=== PATIENT | female | born 1960 | race Caucasian/White ===

== ENCOUNTER → 2016-10-17 | Outpatient (CLI) | payer BC ==
--- NOTE | 2016-10-17 16:13 | KCIC ---
PROCEDURE MRI lumbar spine without contrast HISTORY Left leg and knee and thigh pain, numbness and burning sensation, left leg pain for about 1 month, no known injury TECHNIQUE Multiplanar, multi sequential non contrast MR imaging was performed of the lumbar spine. COMPARISON None FINDINGS Lumbar vertebral body stature and AP alignment are adequate. There are small superior L3 and L2 Schmorl's nodes. There is no significant marrow edema. Conus terminates normally at T12-L1. There is very mild smooth lumbar levoscoliosis. Intervertebral disc spaces are overall adequate, very mild disc desiccation greatest at L1-L2, L3-4, L4-5. There is likely very small Tarlov cyst at S2 up to 0.7 cm longitudinal. L1-2: There is posterior annular tear. Spinal canal and the neural foramina are adequate. L2-3: Spinal canal and the neural foramina are adequate. L3-4: There is negligible disc osteophyte complex and bulge eccentric to the far right lateral recess. Spinal canal and neural foramina are adequate. L4-5: There is mild buckling of the ligamentum flavum. Neural foramina and spinal canal are adequate. L5-S1: Spinal canal and neural foramina are adequate. There is mild facet degenerative change. IMPRESSION 1. There is no significant lumbar spinal stenosis or neural foramina compromise. Electronically signed by: Pasquale Lockhart MD (Oct 17, 2016 16:11:39)
== END | disposition home or self-care (01) ==
LOC: KCIC MRI 15:11
PROVIDERS: ATTEND Family Medicine
DX: M79.605 Pain in left leg (principal); M25.562 Pain in left knee; M79.652 Pain in left thigh
CPT/HCPCS: 72148

== ENCOUNTER → 2017-01-18 | Outpatient (CLI) | payer BC ==
--- NOTE | 2017-01-18 13:30 | KCIC ---
MR of the left knee Indication: Left knee pain anterior and posterior for 3 months. No known injury. Technique: The standard multiplanar sequences are obtained. Findings: Medial meniscus: Degenerative tear. Lateral meniscus: Blunting of the free margin of the body segment, only unequivocally seen on the single slice, compatible with a possible small tear. Anterior cruciate ligament: Intact Posterior cruciate ligament: Intact Medial collateral ligament: Intact. Iliotibial band: Intact. Posterolateral structures: Fibular collateral ligament, biceps tendon and popliteus tendon are intact. Extensor mechanism: Intact. Fluid: Moderate joint effusion. Articular cartilage -patellofemoral joint: Severe chondromalacia at the patella. -medial compartment: Severe chondromalacia with subchondral edema. -lateral compartment: Full-thickness defect of the medial aspect of the lateral tibial plateau articular cartilage measuring 7 mm wide by about 5 mm AP. Bones: No aggressive bone destruction or acute fracture. Soft tissue: Mild generalized soft tissue edema. Small Singh's cyst with some disorganized fluid extending into the upper medial calf raise a question of rupture. Impression: 1. Medial meniscal tear. 2. Possible small lateral meniscal tear. 3. Severe primary osteoarthritis. 4. Small Singh's cyst with possible rupture. Electronically signed by: Beau Mckee MD (01/18/2017 1:27 PM) [facility]
== END | disposition home or self-care (01) ==
LOC: KCIC MRI 11:57
PROVIDERS: ATTEND Family Medicine
DX: M17.12 Unilateral primary osteoarthritis, left knee (principal)
CPT/HCPCS: 73721

== ENCOUNTER 2019-05-08 07:40 | Day surgery (SDC) | payer BC ==
[~2019-05-08] VITALS: Ht 156.2 cm; Wt 86.5 kg
[2019-05-08] MEDS: IV RINGERS,LACTATED 1000ML 1,000 ML IV SCH ×2 (07:00→10:57)
[~2019-05-08 07:40] MED LIST: ASPI-630 PO; BUPIVACAINE-EPI 0.25%-1:200000 MPF 30 ML VIAL. INJ ONE; FAMO-63 PO; IOHEXOL 300 MG/ML 50 ML VIAL. ONE; ONDANSETRON PF 4 MG/2 ML VIAL. IV PRN; PANT40TA6 PO; SUCR1TAB PO; SURGICEL HEMOSTAT 4X8 EACH. ONE; fentaNYL PF VIAL 100 MCG/2 ML VIAL IV PRN
[2019-05-08] MEDS ORDERED: ceFAZolin 2GM PREMIX 2 GM/50 ML BAG IV ONE (08:00)
[2019-05-08] MEDS ORDERED: ROCURONIUM 50 MG/5 ML VIAL. ONE (08:03)
[2019-05-08] MEDS ORDERED: fentaNYL PF VIAL 100 MCG/2 ML VIAL ONE (08:03)
[2019-05-08] MEDS ORDERED: LIDOCAINE 2% PF 5 ML VIAL. ONE (08:03)
[2019-05-08] MEDS ORDERED: SUCCINYLCHOLINE 200 MG/10 ML VIAL. ONE (08:03)
[2019-05-08] MEDS ORDERED: PROPOFOL 20 ML IV ONE (08:03)
[2019-05-08] MEDS ORDERED: ACETAMINOPHEN 500 MG TABLET PO ONE ×2 (08:14→08:30)
[2019-05-08] MEDS ORDERED: INDOCYANINE GREEN 25 MG VIAL. IVP ONE (09:00)
[2019-05-08] MEDS ORDERED: DEXAMETHASONE SOD PHOS 4 MG/ML VIAL ONE (09:57)
[2019-05-08] MEDS ORDERED: DESFLURANE 31 TO 60 MINUTES IH ONE (09:57)
[2019-05-08] MEDS ORDERED: NEOSTIGMINE METHYLSULFATE 5 MG/5 ML SYRINGE. ONE (10:01)
[2019-05-08] MEDS ORDERED: ONDANSETRON PF 4 MG/2 ML VIAL. ONE (10:01)
[2019-05-08] MEDS ORDERED: GLYCOPYRROLATE 1 MG/5 ML VIAL. ONE (10:01)
--- NOTE | 2019-05-08 10:33 | PDOC4 ---
Operative Note Operative Note Date: 05/08/2019 Preoperative diagnosis: Chronic cholecystitis cholelithiasis Postoperative diagnosis: Same Procedure: Laparoscopic cholecystectomy Surgeon: Shaan Specimen: Gallbladder Dictation: Patient is a 58-year-old female is had right upper quadrant abdominal pain nausea vomiting and diarrhea ultrasound showing distended gallbladder with sludge and small stones. The procedure of lap scopic cholecystectomy was explained to the patient detail risk benefits were also discussed including bleeding infection injury to intra-abdominal contents possibly necessitating further open operations alternatives to this procedure also discussed with the patient is seemed to understand gave both verbal and written consent had the procedure performed. Patient was taken to the operating room placed in supine position general anesthesia was initiated once patient was sleep and intubated her abdomen was prepped and draped usual sterile fashion using ChloraPrep. An area just below the umbilicus was injected with quarter percent Marcaine with epinephrine incision was made with 11 blade scalpel and a varies needle was placed within the abdomen creating pneumoperitoneum once this was complete a 10 mm port was placed and a 5 mm camera was placed within the abdomen which was inspected no other abdomen maladies were noted. A 5 mm port was then placed in the epigastrium one in the right lateral abdomen on the right mid abdomen the dome of the gallbladder is grasped retracted cephalad there is quite a bit of adhesions to the omentum from the gallbladder these were taken down bluntly exposing the the triangle the infundibulum of the gallbladder is grasped retracted laterally the adherent tissue the triangle were taken down exposing the cystic duct this was checked under ICg-9 which showed patent cystic duct was doubly clipped and transected the cystic artery was also clipped and transected the gallbladder was taken off the liver using hook electrocautery was noted that the liver bed was somewhat friable and fair amount of oozing of blood. Surgicel was used to pack the triangle area gallbladder was placed in Endo Catch bag and removed the umbilicus right upper quadrant was irrigated and suctioned dry Arixtra powder was then used within the liver bed. Hemostasis was deemed to be appropriate at that point and the pneumoperitoneum was reduced all ports removed the fascial defect at the umbilicus closed [id number] 0 Vicryl suture and skin was approximate all port sites for septic tumor Monocryl Mastisol Steri- Strips and island dressings were applied. Patient was awakened and bated operating room taken to recovery in stable condition all sponge instrument needle counts listed as correct estimate blood loss 30 mL. CHRISTIAN SMITH MD May 08, 2019 10:33
--- NOTE | 2019-05-08 10:35 | DISCH ---
DISCHARGE INSTRUCTIONS Condition on Discharge Condition on Discharge: Stable Activity After Discharge Activity Instructions for Disc: Avoid exertion Other activity instructions: no lifting more than 20 pounds for 2 weeks Diet after Discharge Diet after Discharge: Low Fat Wound Incision Care Other wound/incision instructi: a shower in 24 hours, remove Steri-Strips and 1 week Contacting the DRAryan after DC Call your doctor for: If your condition worsens Follow-Up Follow up with: Dr. Smith in 2 weeks CHRISTIAN SMITH MD May 08, 2019 10:35
[2019-05-08] MEDS: fentaNYL PF VIAL 100 MCG/2 ML VIAL IV PRN ×2 (10:57→11:17)
[2019-05-08] MEDS: PROCHLORPERAZINE 10 MG/2 ML VIAL. IV PRN ×2 (10:58→11:17)
[2019-05-08] MEDS ORDERED: OXYC1TAB15 PO (11:00)
[2019-05-08] MEDS ORDERED: oxyCODONE/APAP 5/325 1 TAB TABLET PO ONE ×2 (11:15)
[2019-05-08] MEDS ORDERED: DEXAMETHASONE SOD PHOS 4 MG/ML VIAL IVP ONE (11:30)
[2019-05-08] MEDS ORDERED: FAMOTIDINE 20 MG/2 ML VIAL IVP ONE (11:30)
[2019-05-08 12:10] VITALS: BP 153/83
--- NOTE | 2019-05-12 16:06 | PATHOLOGY ---
[facility] Accession Number: [id number] . 01 Material submitted: . gallbladder - GALLBLADDER . 01 Clinical history: . Chronic cholecystitis . 02 Diagnosis: Gallbladder, laparoscopic cholecystectomy: - Cholesterolosis, focal. - Chronic cholecystitis. (JPM:dennis; 05/12/2019) S 05/12/2019 0910 Local . 02 Comment: There are no calculi identified within the gallbladder lumen or specimen container. There is no evidence of malignancy. (JPM:dennis; 05/12/2019) . 02 Electronically signed: . Jaren Rushing MD, Pathologist NPI- [id number] . 01 Gross description: . Received in formalin labeled "Tarsha Austin, gallbladder," is an intact, turgid gallbladder measuring 6.5 x 3.7 x 3.4 cm in greatest dimensions. The serosal surface is smooth to partially shaggy and dusky blue-green in appearance, displaying scant attached yellow adipose tissue. Opening the specimen reveals a velvety, dark green mucosa measuring 0.1 cm in thickness, with a gallbladder wall thickness of 0.1 cm not including attached adipose tissue. Scant bright yellow highlights are noted on the mucosal surface. No polyps or nodules are noted grossly. Calculi are not present within the specimen or specimen container. Licensed Loan Officer sections of the infundibulum, body and fundus are submitted in cassette A1. (DAC; 05/11/2019) XDC/XDC 05/12/2019 0908 Local . 02 Pathologist provided ICD-10: K82.4, K81.1 . 02 CPT . 030153 Specimen Comment: A courtesy copy of this report has been sent to [phone], [phone] Specimen Comment: [phone] Specimen Comment: Report sent to / DR CARO Performed at: [address] [facility] [address], [place], [place] [id number] MD Dylan Malloy MD Phone: [phone] Performed at: 02 [facility] [address], [place] [id number] MD Jaren Rushing MD Phone: [phone]
== END 2019-05-08 12:54 | disposition home health service (06) ==
LOC: SURG 07:40
PROVIDERS: ATTEND Surgery
DX: K80.10 Calculus of gallbladder with chronic cholecystitis without obstruction (principal); K21.9 Gastro-esophageal reflux disease without esophagitis; E78.00 Pure hypercholesterolemia, unspecified; Z79.82 Long term (current) use of aspirin; Z85.3 Personal history of malignant neoplasm of breast; Z90.710 Acquired absence of both cervix and uterus; Z98.890 Other specified postprocedural states; Z87.891 Personal history of nicotine dependence; Z72.89 Other problems related to lifestyle; Z88.6 Allergy status to analgesic agent; Z88.8 Allergy status to other drugs, medicaments and biological substances; Z87.39 Personal history of other diseases of the musculoskeletal system and connective tissue
CPT/HCPCS: 47562; A7015; J0330; J0696; J0780; J1100; J2001; J2405; J2704; J2710; J3010; J3490; J7030; 88304; Q9967

== ENCOUNTER → 2019-07-20 | Outpatient (CLI) | payer BC ==
[~2019-07-20] MED LIST changes: -BUPIVACAINE-EPI 0.25%-1:200000 MPF 30 ML VIAL. INJ ONE; +HYDR-2761 PO; +HYDR-2765 PO; -IOHEXOL 300 MG/ML 50 ML VIAL. ONE; +NAPR-683 PO; +NITR100C62 PO; -ONDANSETRON PF 4 MG/2 ML VIAL. IV PRN; +OXYC1TAB15 PO; -SURGICEL HEMOSTAT 4X8 EACH. ONE; +ZOLP10TA PO; -fentaNYL PF VIAL 100 MCG/2 ML VIAL IV PRN
[2019-07-20 09:29] LABS: BASO # 0.1 x10^3/uL (0.0-0.2); BASO % 1 % (0-3); EOS # 0.1 x10^3/uL (0.0-0.7); EOS % 0 % (0-3); HEMATOCRIT 45.9 % (36.0-47.0); HEMOGLOBIN 15.3 g/dL (12.0-15.5); LYMPH # 1.9 x10^3/uL (1.0-4.8); LYMPH % 13 % (24-48); MEAN CORPUSCULAR HEMOGLOBIN 32 pg (25-35); MEAN CORPUSCULAR HGB CONC 33 g/dL (31-37); MEAN CORPUSCULAR VOLUME 96 fL (79-100); MONO # 0.8 x10^3/uL (0.0-1.1); MONO % 6 % (0-9); NEUT % 81 % (31-73); PLATELET COUNT 282 x10^3/uL (140-400); RED BLOOD COUNT 4.77 x10^6/uL (3.50-5.40); RED CELL DISTRIBUTION WIDTH 12.9 % (11.5-14.5); WHITE BLOOD COUNT 14.9 x10^3/uL (4.0-11.0)
[2019-07-20 09:34] LABS: PROTHROMBIN TIME PATIENT 12.2 SEC (11.7-14.0)
[2019-07-20 09:57] LABS: CALCIUM 9.4 mg/dL (8.5-10.1); CREATININE 0.8 mg/dL (0.6-1.0); GFR 72.9; POTASSIUM 3.7 mmol/L (3.5-5.1)
--- NOTE | 2019-07-20 13:44 | EKG ---
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
--- NOTE | 2019-07-20 14:31 | RAD ---
EXAM: Chest, 2 views. HISTORY: Knee replacement. Preoperative evaluation. COMPARISON: None. FINDINGS: 2 views of the chest are obtained. There is no infiltrate, pleural effusion or pneumothorax. The heart is normal in size. IMPRESSION: No acute pulmonary finding. Electronically signed by: Tanna Winchester MD (07/20/2019 2:28 PM) [facility]
[2019-07-20 23:07] LABS: HEMOGLOBIN A1C 5.3 % (4.8-5.6)
== END | disposition home or self-care (01) ==
LOC: SURGPAT 13:34
PROVIDERS: ATTEND Orthopaedic Surgery
DX: Z01.818 Encounter for other preprocedural examination (principal); M17.12 Unilateral primary osteoarthritis, left knee; Z79.899 Other long term (current) drug therapy
CPT/HCPCS: 36415; 71046; 80048; 82040; 82306; 83036; 85025; 85610; 85651; 85730; 87641; 93005

== ENCOUNTER 2019-08-11 05:43 | Inpatient (IN) | payer BC ==
[~2019-08-11] VITALS: Ht 171.4 cm; Wt 80.7 kg
[2019-08-11] VITALS (8 sets, daily range): BP systolic 83–123; BP diastolic 51–86
[~2019-08-11 05:43] MED LIST changes: +CIPR500T94 PO
[2019-08-11] MEDS ORDERED: TRANEXAMIC ACID 1,000 MG in IV NS 50ML -- 1ST BAG INJ ONE (06:00)
[2019-08-11] MEDS ORDERED: ACETAMINOPHEN 500 MG TABLET PO PRN (06:00)
[2019-08-11] MEDS ORDERED: CELECOXIB 100 MG CAPSULE. PO PRN (06:00)
--- NOTE | 2019-08-11 06:14 | PDOC1 ---
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 She had knee arthroscopy in 2017 by me. She had cortisone injections, and took Naproxen, without satisfactory relief. Still having aching pain, and limitations of activity. Past Medical History Past Medical History K81.1 Chronic cholecystitis GI: GERD Psych: Depression Past Surgical History Past Surgical History L knee scope 2016 lap ashli 2019 appendectomy hysterectomy lumpectomy, left breast nasal surgery tonsillectomy Past Surgical History: Appendectomy, Cholecystectomy, Tonsillectomy, Hysterectomy Family History Family History Sister: breast cancer Maternal aunt: breast cancer Paternal aunt: breast cancer Mother: diagnosed with Heart Disease Father: Heart Disease Maternal Uncle: Diabetes Social History Smoke: Quit ALCOHOL: occassional Current Medications Current Medications Current Medications Ondansetron HCl (Zofran) 4 mg PRN Q6HRS PRN IV NAUSEA/VOMITING; Start 08/11/19 at 07:00; Stop 08/12/19 at 06:59 Fentanyl Citrate (Fentanyl 2ml Vial) 25 mcg PRN Q5MIN PRN IV MILD PAIN 1-3; Start 08/11/19 at 07:00; Stop 08/12/19 at 06:59 Fentanyl Citrate (Fentanyl 2ml Vial) 50 mcg PRN Q5MIN PRN IV MODERATE TO SEVERE PAIN; Start 08/11/19 at 07:00; Stop 08/12/19 at 06:59 Morphine Sulfate (Morphine Sulfate) 1 mg PRN Q10MIN PRN IV SEVERE PAIN 7-10; Start 08/11/19 at 07:00; Stop 08/12/19 at 06:59 Ringer's Solution 1,000 ml @ 30 mls/hr Q24H IV ; Start 08/11/19 at 07:00; Stop 08/11/19 at 18:59 Lidocaine HCl (Xylocaine-Mpf 1% 2ml Vial) 2 ml PRN 1X PRN ID PRIOR TO IV START; Start 08/11/19 at 07:00; Stop 08/12/19 at 06:59 Hydromorphone HCl (Dilaudid) 0.5 mg PRN Q10MIN PRN IV SEV PAIN, Second choice; Start 08/11/19 at 07:00; Stop 08/12/19 at 06:59 Prochlorperazine Edisylate (Compazine) 5 mg PACU PRN PRN IV NAUSEA, MRX1; Start 08/11/19 at 07:00; Stop 08/12/19 at 06:59 Morphine Sulfate 5 mg/Ketorolac Tromethamine 30 mg/Ropivacaine 60 ml/Epinephrine HCl 0.5 mg/Sodium Chloride 100 ml @ 100 mls/hr 1X ONCE INT ART ; Start 08/11/19 at 06:00; Stop 08/11/19 at 06:59 Acetaminophen (Tylenol) 1,000 mg 1X PREOP PRN PO PRIOR TO PROCEDURE; Start 08/11/19 at 06:00; Stop 08/11/19 at 18:00 Tranexamic Acid 1000 mg/Sodium Chloride 60 ml @ 60 mls/hr 1X PERIOP ONCE INJ ; Start 08/11/19 at 06:00; Stop 08/11/19 at 06:59 Tranexamic Acid 1000 mg/Sodium Chloride 60 ml @ 60 mls/hr 1X PERIOP ONCE INJ ; Start 08/11/19 at 08:00; Stop 08/11/19 at 08:59 Celecoxib (CeleBREX) 200 mg OC PROC PRN PO PRE-OP; Start 08/11/19 at 06:00; Stop 08/11/19 at 18:00 Cefazolin Sodium/ Dextrose 50 ml @ 100 mls/hr 1X PREOP PRN IV PRIOR TO PROCEDURE; Start 08/11/19 at 06:00; Stop 08/11/19 at 18:00 Active Scripts Active Reported Cipro (Ciprofloxacin Hcl) 500 Mg Tablet 500 Mg PO BID 5 Days Ambien (Zolpidem Tartrate) 10 Mg Tablet 10 Mg PO PRN QHS PRN Pepcid (Famotidine) 20 Mg Tablet 20 Mg PO BID Hydrocodone-Apap 7.5-325 (Hydrocodone Bit/Acetaminophen) 1 Tab Tablet 1 Tab PO PRN Q6HRS PRN Naprosyn (Naproxen) 500 Mg Tablet 500 Mg PO BID Pantoprazole Sodium 40 Mg Tablet.dr 40 Mg PO DAILY Allergies Allergies: Coded Allergies: pineapple (Verified Allergy, Intermediate, FRESH PINEAPPLE - RASH/HIVES, 05/08/19) Sulfa (Sulfonamide Antibiotics) (Verified Adverse Reaction, Intermediate, Rash, 07/23/19) tramadol (Verified Adverse Reaction, Intermediate, really weird feeling ( weak,wobbly), 05/08/19) ROS Review of System CONSTITUTIONAL: Fever denies, denies. Chills denies, denies. Weight gain denies, denies. Weakness none, none. weight loss denies, denies. Fatigue YES. OPHTHALMOLOGY: Blurred vision none, none. Double vision denies, denies. Change in vision none, none. ENT: Hearing loss none, none. Change in voice denies, denies. Rhinorrhea none, none. CARDIOLOGY: Palpitations none, none. Shortness of breath denies, denies. Chest pain denies, denies. GASTROENTEROLOGY: Diarrhea denies, denies. Vomiting none, none. Dysphagia none, none. UROLOGY: Voiding normally yes, yes. Hematuria none, none. MUSCULOSKELETAL: Chronic back or neck pain denies, denies. Swelling of the feet, hands, ankles and /or legs denies, denies. Joint pain Left Knee. Tingling/numbness no. DERMATOLOGY: Rash denies, denies. Lumps none, none. NEUROLOGY: Dizziness/lightheadedness denies, denies. Double vision, temporary blindness denies, denies. Tingling/numbness none, none. PSYCHOLOGY: Change in mood or personality denies, denies. Memory loss none, none. ENDOCRINOLOGY: Obesity denies, denies. Fatigue none, none. Weight loss none, none. HEMATOLOGY/LYMPH: Hepatitis denies, denies. Enlarged lymph nodes denies, denies. Physical Exam General: Alert, Cooperative HEENT: Atraumatic Lungs: Normal air movement Heart: RRR Extremities: No clubbing, No edema, Other ( The LEFT knee shows a mildly antalgic gait. There is mild varus alignment. No masses except for palpable m edial osteophytes. No detectable effusion. Tenderness on the joint lines. Range of motion is 5-115 degrees. There is crepitus with range of motion, and pain at the extremes of motion. The knee is stable to varus and valgus stress without subluxation or laxity. Muscle strength is slightly weak for the quadriceps 4+/5 which may be due to pain or avoidance, and does not seem neurogenic, and the muscle tone and bulk is slightly decreased. The hamstring strength is 5/5. Well- healed arthroscopy portals. The skin is otherwise normal with no lesions or ulcers. Light touch sensation is intact. No edema and no varicosities. Dorsalis pedis pulse is intact and capillary refill is normal) Neuro: Normal speech, Sensation intact Images Images I reviewed her MRI from 01/18/17. She had full-thickness lateral defects and severe patellar chondromalacia. A partial knee arthroplasty would not be appropriate in this setting due to the relatively large lateral cartilage full thickness defect. [facility] [address] [place] [address] IMAGING REPORT Signed PATIENT: NIA POTTER SACCOUNT: [id number] : 1960 LOCATION: [facility] AGE: 58 SEX: F EXAM STATUS: REG CLI ORD. PHYSICIAN: VIDYA DICKERSON MD REASON: PROCEDURE: KNEE RIGHT 3V EXAM: Bilateral knees, standing view; right knee, 2 views. HISTORY: Pain. COMPARISON: 10/09/2018 FINDINGS: A standing view both knees and lateral and sunrise views of the right knee are obtained. There is left greater than right medial compartment joint space narrowing with subchondral sclerosis and spurring. There is also bilateral lateral compartment spurring. There is left genu varus. There is a trace right joint effusion. IMPRESSION: 1. Moderate to severe left and mild to moderate right medial compartment and mild bilateral lateral compartment osteoarthritis of both knees. 2. Mild left genu varus. 3. Trace right knee effusion. Electronically signed by: Tanna Briggs MD (07/06/2019 4:39 PM) [facility] DICTATED and SIGNED BY: TANAN BRIGGS MD DATE: 07/06/19 1639 VTE Prophylaxis Ordered VTE Prophylaxis Devices: Yes VTE Pharmacological Prophylaxi: Yes Assessment/Plan Assessment/Plan Primary osteoarthritis left knee M17.12 We discussed options for treatment. I reviewed her MRI and partial knee arthroplasty does not appear appropriate. She's tried nonoperative treatment with cortisone injection. She is using naproxen regularly. She is 58 years old, with varus malalignment, osteoarthritis, and painful knee despite nonoperative treatment. I offered total knee arthroplasty. I discussed the [employer] 30 year knee technology, and I would recommend that. 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 If robotic surgery is available we may use that as well. We discussed the potential risks of infection, neurovascular injury, bleeding, blood clots, need for revision surgery, or other potential surgical or anesthetic complications. all of her questions about surgery were answered and she desires to proceed with left total knee arthroplasty ARTURO PADILLA MD Aug 11, 2019 06:14
[2019-08-11] MEDS ORDERED: ROCURONIUM 50 MG/5 ML VIAL. ONE (06:51)
[2019-08-11] MEDS ORDERED: fentaNYL PF VIAL 250 MCG/5 ML VIAL ONE (06:51)
[2019-08-11] MEDS ORDERED: VANCOMYCIN 1 GM VIAL. ONE ×2 (06:51→06:52)
[2019-08-11] MEDS ORDERED: TOBRAMYCIN POWDER 1.2 GM VIAL. ONE (06:52)
[2019-08-11] MEDS ORDERED: PROPOFOL 20 ML IV ONE (06:52)
[2019-08-11] MEDS ORDERED: DEXAMETHASONE SOD PHOS 4 MG/ML VIAL ONE ×2 (06:52→07:39)
[2019-08-11] MEDS ORDERED: ONDANSETRON PF 4 MG/2 ML VIAL. ONE (06:52)
[2019-08-11] MEDS ORDERED: LIDOCAINE 2% PF 5 ML VIAL. ONE (06:52)
[2019-08-11] MEDS ORDERED: HYDROmorphone 2 MG/ML VIAL IV PRN (07:00)
[2019-08-11] MEDS ORDERED: PROCHLORPERAZINE 10 MG/2 ML VIAL. IV PRN (07:00)
[2019-08-11] MEDS ORDERED: LIDOCAINE 1% PF 2 ML VIAL. ID PRN (07:00)
[2019-08-11] MEDS ORDERED: IV RINGERS,LACTATED 1000ML 1,000 ML IV SCH (07:00)
[2019-08-11] MEDS ORDERED: ONDANSETRON PF 4 MG/2 ML VIAL. IV PRN (07:00)
[2019-08-11] MEDS ORDERED: fentaNYL PF VIAL 100 MCG/2 ML VIAL IV PRN ×3 (07:00→10:00)
[2019-08-11] MEDS ORDERED: MORPHINE SULFATE 2 MG/ML VIAL. IV PRN ×2 (07:00→10:00)
[2019-08-11] MEDS ORDERED: ceFAZolin 2GM PREMIX 2 GM/50 ML BAG IV ONE (07:00)
[2019-08-11] MEDS ORDERED: MIDAZOLAM HCL/PF 2 MG/2 ML VIAL. ONE (07:03)
[2019-08-11] MEDS: MORPHINE SULFATE 5 MG, KETOROLAC 30MG VIAL 30 MG, ROPIVacaine 0.5% PF 60 ML, EPINEPHrin... INT ART ONE ×10 (07:50→08:33)
[2019-08-11] MEDS ORDERED: TRANEXAMIC ACID 1,000 MG in IV NS 50ML -- 2ND BAG INJ ONE (08:00)
[2019-08-11] MEDS ORDERED: SEVOFLURANE > 120 MINUTES. IH ONE (08:05)
[2019-08-11] MEDS ORDERED: PHENYLEPHRINE in 0.9% NACL PF 1 MG/10 ML SYRINGE. IV ONE (08:05)
[2019-08-11] MEDS ORDERED: NEOSTIGMINE METHYLSULFATE 5 MG/5 ML SYRINGE. ONE (09:09)
[2019-08-11] MEDS ORDERED: GLYCOPYRROLATE 1 MG/5 ML VIAL. ONE (09:09)
[2019-08-11] MEDS ORDERED: IV NORMAL SALINE 1000ML BAG 1,000 ML IV SCH (09:46)
--- NOTE | 2019-08-11 09:46 | PDOC4 ---
Operative Note Operative Note Date of Procedure: August 11, 2019 Pre-Op Diagnosis: Unilateral primary osteoarthritis, left knee. M17.12 Post-Op Diagnosis: same Procedure: left total knee arthroplasty with patella resurfacing, robotic assisted, CPT 97092 Surgeon: Arturo Gomez MD Rate Inserter: KLAUS Sierra Anesthesia: General EBL: 100 mL Specimens Obtained: left knee bone and soft tissue Complications: none Drains: Hemovac plus pain catheter Tourniquet time: 65 Minutes Tourniquet Pressure: 300 mm Hg Indications for Procedure: Knee arthritis pain, affecting quality of life, unrelieved by nonoperative management Findings: Severe osteoarthritis with bone on bone contact medially with full thickness cartilage loss in the patellofemoral and lateral compartments Implants: Mejia & Nephew Journey II Total Knee System, Size 5 left bicruciate stabilized Journey II BCS Oxinium femoral component, size 3 left Journey non porous tibial baseplate, size 3-4 12 mm left Journey II BCS XLPE articular insert, 32 mm oval Ignacia II resurfacing patellar component Procedure in Detail: The patient was identified in the preoperative holding area, and the correct left lower extremity was marked by me. The patient was taken to the operating room where the patient was anesthetized by the Department of Anesthesia. Preoperative antibiotics were given intravenously. Tranexamic acid 1 g was given intravenously for intraoperative hemostasis. A "time-out" procedure was performed. The patient was positioned supine on the operative table with a tourniquet on the upper left thigh. A left hip bump and heel bump were attached to the operating table for later intraoperative positioning. The left lower limb was thoroughly scrubbed, then sterile Chloraprep solution was applied, and the limb was draped in sterile fashion. The operating team wore exhaust ventilated hoods using the [employer] Personal Protection Toga Zippered Peel-Away protection system. An impervious stockinet and an adhesive drape were used such that the skin was entirely covered. The limb was exsanguinated with an Esmarch bandage, and the tourniquet was inflated. A midline skin incision was made with a scalpel using the patella and tibial tubercle as landmarks. Electrocautery was used for hemostasis. My case management assistant used rake retractors and a laparotomy sponge. A medial parapatellar arthrotomy incision was used with extension into the distal quadriceps tendon. The patella was retracted laterally and Hohmann retractors were now used by my case management assistant. Excess synovium, the menisci, and the cruciate ligaments were resected sharply. A periarticular multimodal ropivacaine anesthetic injection was used in the suprapatellar pouch and distal quadriceps muscle. The patella was everted and exposed. The patella thickness was measured with a caliper, and then cut freehand with a saw, using caliper measurements to assess the resection. The lateral retinaculum was partially released from the lateral patella using electrocautery. Rongeurs were used to make sure there were no remaining exposed patellar osteophytes medially or laterally. The patella was sized, and then drilled for an oval three-peg patella component. The tibial tracker array for the NAVIO system was applied to the tibial crest four finger breadths below the tibial tubercle, using percutaneous incisions and bicortical pins. The femoral tracker array was applied outside of the original incision using two separate stab incisions using bicortical pins. Checkpoint verification pins were applied to the femur and tibia. Using the point probe, the medial and lateral malleoli were localized and the locations were stored. The center of the tibia was noted at the anterior cruciate ligament insertion and stored. The center of the femur was marked at the intersection of Whitesidess line with the transepicondylar axis. The hip center calculation was performed with range of motion of the hip. The femur neutral position was identified, and simulated weightbearing was performed with axial compression on the foot. Range of motion without stress was performed and the data collected. Range of motion with valgus stress, and range of motion with varus stress data collection was also performed. Rotational references include the Whitesidess line, and the trans-epicondylar axis. The femoral articular surface was now mapped in 3 dimensions using the point probe and digital data collected. The tibial condyle articular surfaces and cortical edges were mapped in 3 dimensions using the point probe including the medial and lateral tibial plateau. Implant planning was now performed on-screen with manipulation of the implant sizes, cut thicknesses and gaps, component rotation, component flexion/extension and component varus/valgus until satisfactory ligament balance, alignment and stability of the knee was expected throughout the range of motion. My case management assistant held Hohmann retractors and an Army-[place]oor retractor to protect the medial and lateral collateral ligaments, the patellar tendon, the skin and the other soft tissues. The point probe was used to confirm the location of the checkpoint verification pins. The distal femoral surface was now prepared using the Anspach mark with footpedal, and the NAVIO handpiece for bone removal to the previously planned distal femoral resection. The crosshairs at the pin locations were marked by using a mallet and the point probe for definitive location. A 5-in-1 Journey II cutting guide was then applied and the position was checked with the virtual abdullahi wing from the NAVIO to ensure proper placement as the pins were applied. The posterior, anterior, and all chamfer cuts were made with the oscillating saw. Excess bone was removed with an osteotome and rongeurs. The tibial cutting guide was applied, positioned using the NAVIO virtual abdullahi wing, and secured to the upper tibia using three pins at the previously planned location. The virtual abdullahi wing was used to confirm the resection depth, slope and coronal alignment. The upper tibia was cut made with an oscillating saw. My case management assistant held Hohmann retractors and a posterior cruciate ligament retractor to protect the medial and lateral collateral ligaments, the patellar tendon, the skin, the peroneal nerve and the other soft tissues. The upper tibia was sized with a trial baseplate. The posterior compartment was cleared of osteophytes and loose bodies. The periarticular anesthetic injection was used in the posterior compartment. The box cut for a posterior stabilized component was made. A preliminary reduction was performed with a trial femur, trial tibial baseplate and trial polyethylene. The NAVIO system was used to confirm range of motion, and postoperative stressed gap assessment. No additional releases were required. The stability was assessed using different thicknesses of tibial articular surface to find satisfactory stability and good range of motion. The rotation of the tibial component was marked on the upper tibia. Final trial reduction was now performed verifying patella tracking and tibiofemoral stability and alignment. The bone pins and tracker arrays were removed, and the checkpoint verification pins were removed. The tibia preparation was completed with a drill, saw, and fin punch at the previously noted rotation. The final implants were verified and opened. Outer gloves were changed by the operating team. Betadine lavage was used. The bone cuts were irrigated with saline using the [employer] InterPulse device and then dried with suction and laparotomy sponges. Two packages of Mejia + Nephew Rally HV bone cement were mixed in powdered form with Vancomycin 1gm and Tobramycin 1.2 gm, and then vacuum-mixed with the monomer, and placed into a cement gun. The cut surfaces of the bone were thoroughly dried with suction and with laparotomy sponges for cement interdigitation. The final components were cemented into place. The knee was kept at full extension while the cement hardened, and excess cement was removed. A Betadine lavage was used throughout the surgical exposure, and allowed to sit in contact with the exposed joint surfaces for three minutes while the cement hardened. Tranexamic acid 1 g was redosed intravenously for additional intraoperative hemostasis. The tourniquet was released, and electrocautery was used for hemostasis. A final periarticular anesthetic injection was used for pain relief. The bone pin sites on the tibial crest were closed with #3-0 Nylon sutures. A final check of [id number] and stability was made, and the polyethylene implant final size was chosen. The polyethylene implant was secured to the tibial baseplate, and the knee was reduced a final time and range of motion and stability was confirmed. Thorough irrigation was used. A pain catheter, and a 15 Fr Hemovac were inserted. Topical Vancomycin 1 gm was used during the closure. The arthrotomy was closed with interrupted [id number] #1 PDS suture. The arthrotomy incision was then run with #1 STRATAFIX Symmetric PDS Plus Knotless suture. The subcutaneous tissues were approximated initially with 2-0 PDS inverted interrupted sutures by my case management assistant. Next the subcuticular layer was approximat ed in a running fashion with #3-0 STRATAFIX suture by my case management assistant. The skin incision was then covered and reinforced by my case management assistant with Acticoat, followed by a HAYLIE single use negative pressure wound therapy dressing Soft roll and an Robbin wrap were applied. Needle and sponge counts were correct. There were no apparent complications. The patient returned to the recovery room in stable condition. ARTURO GOMEZ MD Aug 11, 2019 09:46
[2019-08-11] MEDS ORDERED: METOCLOPRAMIDE HCL 10 MG/2 ML VIAL. IV PRN (10:00)
[2019-08-11] MEDS ORDERED: MORPHINE SULFATE 4 MG/ML VIAL. IV PRN (10:00)
[2019-08-11] MEDS ORDERED: IV DEXTROSE 5% 250 ML BAG. IV PRN (10:00)
[2019-08-11] MEDS ORDERED: CALCIUM CARBONATE 500 MG TAB.CHEW PO PRN (10:00)
[2019-08-11] MEDS ORDERED: PROCHLORPERAZINE 5 MG TABLET. PO PRN (10:00)
[2019-08-11] MEDS ORDERED: diphenhydrAMINE 50 MG/ML VIAL IV PRN (10:00)
[2019-08-11] MEDS ORDERED: DEXTROSE 50% 25 GM / 50ML DISP.SYRIN. IV PRN (10:00)
[2019-08-11] MEDS ORDERED: fentaNYL PF VIAL 100 MCG/2 ML VIAL ONE ×2 (10:14→10:34)
[2019-08-11] MEDS ORDERED: oxyCODONE/APAP 5/325 1 TAB TABLET PO PRN (10:15)
[2019-08-11] MEDS: fentaNYL PF VIAL 100 MCG/2 ML VIAL IV PRN ×5 (10:17→12:43)
--- NOTE | 2019-08-11 10:32 | RAD ---
EXAM: Left knee, 2 views. HISTORY: Arthroplasty. COMPARISON: 10/09/2018 FINDINGS: 2 views of the right knee are obtained. There is a left knee arthroplasty in expected position. There is soft tissue gas, joint fluid and a drain due to recent surgery. There are track tomlinson within the proximal tibia due to prior instrumentation. IMPRESSION: Left knee arthroplasty in expected position. Electronically signed by: Tanna Winchester MD (08/11/2019 10:29 AM) [facility]
[2019-08-11] MEDS: ONDANSETRON ODT 4 MG TAB.RAPDIS. PO SCH ×2 (12:00→18:00)
[2019-08-11] MEDS: ONDANSETRON PF 4 MG/2 ML VIAL. IV SCH ×2 (12:44→18:00)
--- NOTE | 2019-08-11 13:43 | NUR ---
received from recovery. she is alert and oriented. complains to having soreness in the back of her thigh. daughter and sister here. she is still on Cipro for a uti.(2nd med -1st on Macrodantin). she has good pulses strength and motion in bilateral lower extremities.
[2019-08-11] MEDS: oxyCODONE/APAP 5/325 1 TAB TABLET PO PRN ×2 (16:49→20:37)
[2019-08-11] MEDS ORDERED: KETOROLAC 30MG VIAL 30 MG, BUPIVACAINE MPF 0.25% 20 ML, EPINEPHrine 0.5 MG in TOTAL VOL... INT ART SCH (18:00)
[2019-08-11] MEDS: FAMOTIDINE 20 MG TABLET. PO SCH (20:37)
[2019-08-11] MEDS: ASPIRIN ENTERIC COATED 325 MG TABLET.DR. PO SCH (20:37)
[2019-08-11] MEDS: CIPROFLOXACIN HCL 250 MG TABLET. PO SCH (20:37)
[2019-08-11] MEDS: ZOLPIDEM 5 MG TABLET. PO PRN (23:08)
[2019-08-12 05:11] LABS: HEMATOCRIT 35.5 % (36.0-47.0); HEMOGLOBIN 11.9 g/dL (12.0-15.5)
[2019-08-12] MEDS: HYDROcodone/APAP 7.5/325MG 1 TAB TABLET PO PRN ×3 (05:30→19:30)
[2019-08-12] MEDS: ONDANSETRON ODT 4 MG TAB.RAPDIS. PO SCH ×2 (06:00)
[2019-08-12] MEDS ORDERED: MAGNESIUM HYDROXIDE 2,400 MG/30 ML ORAL.SUSP. PO PRN (06:00)
[2019-08-12] MEDS: ONDANSETRON PF 4 MG/2 ML VIAL. IV SCH ×2 (06:00)
--- NOTE | 2019-08-12 06:32 | NUR ---
IAC became disconnected sometime during the day. IAC and Hemovac removed w/o difficulty, tips intact. Gauze and foam dressing applied over Hemovac site. States the Percocet "makes her feel drunk." Lortab 7.5 re-ordered per home med.
[2019-08-12 06:34] VITALS: BP 106/54
--- NOTE | 2019-08-12 07:29 | PDOC ---
ORTHO PROGRESS NOTES Subjective Patient states feeling well with minimal pain at this time. Post-op Day: 1 Procedure L TKA Vitals Vital Signs Date Time Temp Pulse Resp B/P (MAP) Pulse Ox O2 Delivery O2 Flow Rate FiO2 08/12/19 06:34 98.2 67 20 106/54 (71) 92 Room Air 98.2 08/11/19 12:30 1.0 Labs Laboratory Tests Test 08/12/19 04:00 Hemoglobin 11.9 g/dL (12.0-15.5) Hematocrit 35.5 % (36.0-47.0) Mean Corpuscular Hemoglobin Concent 33 g/dL (31-37) Laboratory Tests Test 08/12/19 04:00 Hemoglobin 11.9 g/dL (12.0-15.5) Hematocrit 35.5 % (36.0-47.0) Mean Corpuscular Hemoglobin Concent 33 g/dL (31-37) Notes awake and alert sitting up in chair at bedside. Assessment and Plan POD # 1 S/P L TKA motor and sensation intact distally dressing dry and intact pain control PT today FELTON RAMSEY APRN Aug 12, 2019 07:29
[2019-08-12] MEDS: SENNOSIDES/DOCUSATE 8.6/50MG TABLET. PO SCH (08:00)
[2019-08-12] MEDS: CIPROFLOXACIN HCL 250 MG TABLET. PO SCH ×2 (08:00→21:10)
[2019-08-12] MEDS: FAMOTIDINE 20 MG TABLET. PO SCH ×2 (08:00→21:10)
[2019-08-12] MEDS: MULTIVITAMIN with MINERAL TABLET. PO SCH (08:00)
[2019-08-12] MEDS: ASPIRIN ENTERIC COATED 325 MG TABLET.DR. PO SCH ×2 (08:01→21:10)
[2019-08-12] MEDS: MELOXICAM 7.5 MG TABLET PO SCH (08:01)
[2019-08-12] MEDS ORDERED: PANTOPRAZOLE 40 MG TABLET.DR. PO SCH (09:00)
[2019-08-12] MEDS: oxyCODONE/APAP 5/325 1 TAB TABLET PO PRN ×3 (09:23→16:45)
[2019-08-12] MEDS ORDERED: ONDANSETRON PF 4 MG/2 ML VIAL. IV PRN (12:00)
[2019-08-12] MEDS ORDERED: ONDANSETRON ODT 4 MG TAB.RAPDIS. PO PRN (12:00)
[2019-08-12] MEDS ORDERED: BISACODYL 10 MG SUPP.RECT. PR PRN (16:00)
[2019-08-12 18:00] VITALS: BP 96/71
--- NOTE | 2019-08-12 18:06 | PATHOLOGY ---
[facility] Accession Number: [id number] . 01 Material submitted: . knee - LEFT KNEE BONE AND TISSUE. Modifiers: left . 01 Clinical history: . OA left knee . 02 Diagnosis: Segments of bone and soft tissue, left total knee arthroplasty: - Advanced degenerative arthritis. (JPM/db; 08/12/2019) LBQ 08/12/2019 1553 Local . 02 Electronically signed: . Jaren Rushing MD, Pathologist NPI- [id number] . 01 Gross description: . The specimen is received in formalin, labeled "Tarsha Austin, left knee bone and tissue" and consists of multiple segments of pink-nieves bone including the tibial plateau measuring 13.3 x 12.0 x 2.0 cm. No meniscus is grossly identified. The articular surfaces display extensive roughening and eburnation covering approximately 50% of the articular surface. Osteophytes are present. Trimmer Helper sections are submitted in A1-A2 with A2 following decalcification. (SDY; 08/11/2019) SYU/SYU 08/12/2019 1552 Local . 02 Pathologist provided ICD-10: M17.12 . 02 CPT . 965274, [id number] Specimen Comment: A courtesy copy of this report has been sent to [phone], [phone] Specimen Comment: [phone] Specimen Comment: Report sent to / DR CARO Performed at: 01 [facility] [address], [place] [id number] MD Dylan Malloy MD Phone: [phone] Performed at: 02 [facility] [address], [place] [id number] MD Jaren Rushing MD Phone: [phone]
--- NOTE | 2019-08-12 19:37 | PDOC ---
PROGRESS NOTES Subjective Subjective Having hip back and knee pain. Got IV pain meds for pain, but now is hypotensive. Objective Vital Signs Vital Signs Date Time Temp Pulse Resp B/P (MAP) Pulse Ox O2 Delivery O2 Flow Rate FiO2 08/12/19 19:30 20 Room Air 08/12/19 18:00 98.0 91 96/71 (79) 98.0 08/12/19 06:34 92 08/11/19 12:30 1.0 Physical Exam Hemovac and pain cath have been removed. HAYLIE intact. Calf soft NT. Good AROM at foot. Labs Laboratory Tests Test 08/12/19 04:00 Hemoglobin 11.9 g/dL (12.0-15.5) Hematocrit 35.5 % (36.0-47.0) Mean Corpuscular Hemoglobin Concent 33 g/dL (31-37) Laboratory Tests Test 08/12/19 04:00 Hemoglobin 11.9 g/dL (12.0-15.5) Hematocrit 35.5 % (36.0-47.0) Mean Corpuscular Hemoglobin Concent 33 g/dL (31-37) Imaging report reviewed, images independently reviewed. Satisfactory TKA without apparent complications. [facility] [address] [place] [address] IMAGING REPORT Signed PATIENT: NIA POTTER ACCOUNT: [id number] : 1960 LOCATION: [address] [place] [address] AGE: 59 SEX: F EXAM STATUS: ADM IN ORD. PHYSICIAN: ARTURO PADILLA MD REASON: POST OP PROCEDURE: KNEE LEFT 2V EXAM: Left knee, 2 views. HISTORY: Arthroplasty. COMPARISON: 10/09/2018 FINDINGS: 2 views of the right knee are obtained. There is a left knee arthroplasty in expected position. There is soft tissue gas, joint fluid and a drain due to recent surgery. There are track tomlinson within the proximal tibia due to prior instrumentation. IMPRESSION: Left knee arthroplasty in expected position. Electronically signed by: Tanna Briggs MD (08/11/2019 10:29 AM) [facility] DICTATED and SIGNED BY: TANNA BRIGGS MD DATE: 08/11/19 1029 Assessment Assessment POD#1 after TKA Hypotension, probably related to pain meds. Plan Plan of Care Encourage PO fluids, switch to oral pain meds only and recheck BP. Last blood pressure is 96/71 so needs to stay in hospital for further monitoring. ARTURO PADILLA MD Aug 12, 2019 19:37
[2019-08-12] MEDS: ZOLPIDEM 5 MG TABLET. PO PRN (21:10)
[2019-08-12] MEDS: 0.9 % SODIUM CHLORIDE 10 ML DISP.SYRIN. IV PRN (21:11)
[2019-08-13 03:13] VITALS: BP 119/68
[2019-08-13 05:56] VITALS: BP 129/75
--- NOTE | 2019-08-13 06:00 | NUR ---
Slept well all noc. VSS.
[2019-08-13] MEDS: HYDROcodone/APAP 7.5/325MG 1 TAB TABLET PO PRN ×2 (06:23→20:51)
[2019-08-13] MEDS: FAMOTIDINE 20 MG TABLET. PO SCH ×3 (06:23→20:50)
--- NOTE | 2019-08-13 07:45 | NUR ---
Tarsha is very uncomfortable. rubbing her leg ; has ice and is rating her pain "high" medicated with fentanyl 25mcg iv. daughter at bedside. up in chair.
--- NOTE | 2019-08-13 08:00 | NUR ---
spoke with lab regarding the rbc-active bleeding and cancelled the test.
[2019-08-13] MEDS: ASPIRIN ENTERIC COATED 325 MG TABLET.DR. PO SCH ×2 (08:26→20:50)
[2019-08-13] MEDS: MELOXICAM 7.5 MG TABLET PO SCH (08:27)
[2019-08-13] MEDS: SENNOSIDES/DOCUSATE 8.6/50MG TABLET. PO SCH (08:30)
[2019-08-13] MEDS: MULTIVITAMIN with MINERAL TABLET. PO SCH (08:30)
--- NOTE | 2019-08-13 08:30 | PDOC ---
PROGRESS NOTES Subjective Subjective Had severe pain yesterday but getting better today. Still using IV pain meds this morning due to pain, but BP is better. Objective Vital Signs Vital Signs Date Time Temp Pulse Resp B/P (MAP) Pulse Ox O2 Delivery O2 Flow Rate FiO2 08/13/19 07:30 18 Room Air 08/13/19 05:56 98.1 88 129/75 (93) 96 98.1 08/11/19 12:30 1.0 Physical Exam HAYLIE dry and intact. Expected swelling but no blisters or eccymosis. Calf soft and NT. Good AROM of foot and toes. Labs Laboratory Tests Test 08/12/19 04:00 Hemoglobin 11.9 g/dL (12.0-15.5) Hematocrit 35.5 % (36.0-47.0) Mean Corpuscular Hemoglobin Concent 33 g/dL (31-37) Assessment Assessment POD#2 TKA Plan Plan of Care Considering discharge today. BP better, but still on IV pain meds. Will reassess around 1:00 p.m. with PT for discharge to home today. ARTURO PADILLA MD Aug 13, 2019 08:30
[2019-08-13] MEDS: oxyCODONE/APAP 5/325 1 TAB TABLET PO PRN ×3 (09:24→16:53)
--- NOTE | 2019-08-13 15:00 | NUR ---
attended both rehabs. pain is still a 4-5 but is no longer throbbing. left knee remains swollen. family remains at bedside. Addendum: 08/13/19 at 1816 by JASMIN TREVINO RN Nato mitchell removed and medigrip applied over knee cap area.
[2019-08-13 18:02] VITALS: BP 118/55
--- NOTE | 2019-08-13 19:25 | NUR ---
In bed, denies pain currently. Ice pack on. States "last night was the 1st night that I've slept." VSS.
[2019-08-13] MEDS: ZOLPIDEM 5 MG TABLET. PO PRN (20:50)
[2019-08-13] MEDS: 0.9 % SODIUM CHLORIDE 10 ML DISP.SYRIN. IV PRN (20:51)
[2019-08-14] MEDS: HYDROcodone/APAP 7.5/325MG 1 TAB TABLET PO PRN ×3 (03:01→14:18)
[2019-08-14 06:09] VITALS: BP 117/64
[2019-08-14] MEDS: MELOXICAM 7.5 MG TABLET PO SCH (08:08)
[2019-08-14] MEDS: SENNOSIDES/DOCUSATE 8.6/50MG TABLET. PO SCH (08:08)
[2019-08-14] MEDS: MULTIVITAMIN with MINERAL TABLET. PO SCH (08:08)
[2019-08-14] MEDS: ASPIRIN ENTERIC COATED 325 MG TABLET.DR. PO SCH (08:08)
--- NOTE | 2019-08-14 09:11 | PDOC ---
PROGRESS NOTES Subjective Subjective Planning on discharge today. Objective Vital Signs Vital Signs Date Time Temp Pulse Resp B/P (MAP) Pulse Ox O2 Delivery O2 Flow Rate FiO2 08/14/19 07:49 Room Air 08/14/19 06:09 97.9 81 20 117/64 (81) 95 97.9 08/11/19 12:30 1.0 Physical Exam HAYLIE is intact and dry. Calf soft and nontender. Assessment Assessment POD #3 TKA Plan Plan of Care Discharge today to home with outpatient physical therapy. Office followup in 10- 14 days. Continue DVT prophylaxis. ARTURO PADILLA MD Aug 14, 2019 09:11
[2019-08-14] MEDS ORDERED: HYDR-2765 PO (09:42)
[2019-08-14] MEDS ORDERED: ASPI325T11 PO (09:42)
[2019-08-14] MEDS ORDERED: MULT1TAB90 PO (09:53)
[2019-08-14 12:46] VITALS: BP 99/58
== END 2019-08-14 14:44 | disposition home or self-care (01) | DRG 470 ==
LOC: SURG 05:43 → EDSTATUS 07:10 → 4 SOUTHEST 09:46 → OBSVTOIN 08-12 13:32
PROVIDERS: ADMIT Orthopaedic Surgery; ATTEND Orthopaedic Surgery
PROC: 8E0Y0CZ Robotic Assisted Procedure of Lower Extremity, Open Approach (ICD-10-PCS; 2019-08-11)
PROC: 0SRD0J9 Replacement of Left Knee Joint with Synthetic Substitute, Cemented, Open Approach (ICD-10-PCS; principal; 2019-08-11 07:10)
DX: M17.0 Bilateral primary osteoarthritis of knee (principal); M21.162 Varus deformity, not elsewhere classified, left knee; Z80.3 Family history of malignant neoplasm of breast; K81.1 Chronic cholecystitis; K21.9 Gastro-esophageal reflux disease without esophagitis; F32.9 Major depressive disorder, single episode, unspecified; Z82.49 Family history of ischemic heart disease and other diseases of the circulatory system; Z83.3 Family history of diabetes mellitus; Z90.710 Acquired absence of both cervix and uterus; Z88.2 Allergy status to sulfonamides; Z91.018 Allergy to other foods
CPT/HCPCS: 36415; 73560; 85014; 85018; 86850; 86900; 86901; 86920; 88304; 88311; A7015; C1713; G0378; G0379; J0171; J0696; J1100; J1885; J2001; J2250; J2270; J2370; J2405; J2704; J2710; J2795; J3010; J3260; J3370; J3490; J7030; J7120; 97110; 97116; 97150; 97530; 97535; A4461; C1769

== ENCOUNTER → 2019-12-11 | Outpatient (CLI) | payer BC ==
[~2019-12-11] MED LIST changes: +ASCO500C PO; +ASPI325T11 PO; +ASPI81TA50 PO; +FEXO1TAB27 PO; +MULT1TAB90 PO; +SENN1TAB62 PO; +VITA1TAB31 PO
[2019-12-11 14:28] LABS: BASO # 0.1 x10^3/uL (0.0-0.2); BASO % 1 % (0-3); EOS # 0.1 x10^3/uL (0.0-0.7); EOS % 1 % (0-3); HEMATOCRIT 38.4 % (36.0-47.0); HEMOGLOBIN 13.1 g/dL (12.0-15.5); LYMPH # 1.8 x10^3/uL (1.0-4.8); LYMPH % 23 % (24-48); MEAN CORPUSCULAR HEMOGLOBIN 33 pg (25-35); MEAN CORPUSCULAR HGB CONC 34 g/dL (31-37); MEAN CORPUSCULAR VOLUME 95 fL (79-100); MONO # 0.6 x10^3/uL (0.0-1.1); MONO % 8 % (0-9); NEUT # 5.2 x10^3/uL (1.8-7.7); NEUT % 67 % (31-73); PLATELET COUNT 275 x10^3/uL (140-400); RED BLOOD COUNT 4.03 x10^6/uL (3.50-5.40); WHITE BLOOD COUNT 7.7 x10^3/uL (4.0-11.0)
[2019-12-11 15:26] LABS: ALBUMIN 3.6 g/dL (3.4-5.0); CALCIUM 8.9 mg/dL (8.5-10.1); CREATININE 0.8 mg/dL (0.6-1.0); GFR 72.9
[2019-12-12 07:14] LABS: HEMOGLOBIN A1C 5.3 % (4.8-5.6)
== END | disposition home or self-care (01) ==
LOC: SURGPAT 13:24
PROVIDERS: ATTEND Orthopaedic Surgery
DX: Z01.818 Encounter for other preprocedural examination (principal); M17.11 Unilateral primary osteoarthritis, right knee
CPT/HCPCS: 36415; 80048; 82040; 82306; 83036; 85025; 85610; 85730; 86140; 87641; U0003-CS

== ENCOUNTER 2019-12-15 05:38 | Inpatient (IN) | payer BC ==
[2019-12-15] VITALS (7 sets, daily range): BP systolic 99–132; BP diastolic 46–78
[~2019-12-15] VITALS: Ht 171.4 cm; Wt 80.7 kg
[2019-12-15] MEDS ORDERED: ACETAMINOPHEN 500 MG TABLET PO PRN (06:00)
[2019-12-15] MEDS ORDERED: MORPHINE SULFATE 5 MG, KETOROLAC 30MG VIAL 30 MG, ROPIVacaine 0.5% PF 60 ML, EPINEPHrin... INT ART ONE ×5 (06:00)
[2019-12-15] MEDS ORDERED: TRANEXAMIC ACID 1,000 MG in IV NS 50ML -- 1ST BAG INJ ONE (06:00)
[2019-12-15] MEDS ORDERED: CELECOXIB 100 MG CAPSULE. PO PRN (06:00)
[2019-12-15] MEDS ORDERED: TOBRAMYCIN POWDER 1.2 GM VIAL. ONE (06:09)
[2019-12-15] MEDS ORDERED: VANCOMYCIN 1 GM VIAL. ONE ×2 (06:09→08:10)
[2019-12-15] MEDS ORDERED: HYDROmorphone 2 MG/ML VIAL IV PRN (07:00)
[2019-12-15] MEDS ORDERED: PROCHLORPERAZINE 10 MG/2 ML VIAL. IV PRN (07:00)
[2019-12-15] MEDS ORDERED: ONDANSETRON PF 4 MG/2 ML VIAL. IV PRN (07:00)
[2019-12-15] MEDS ORDERED: fentaNYL PF VIAL 100 MCG/2 ML VIAL IV PRN (07:00)
[2019-12-15] MEDS ORDERED: IV RINGERS,LACTATED 1000ML 1,000 ML IV SCH (07:00)
[2019-12-15] MEDS ORDERED: fentaNYL PF VIAL 100 MCG/2 ML VIAL ONE ×4 (07:06→10:36)
[2019-12-15] MEDS ORDERED: MIDAZOLAM HCL/PF 2 MG/2 ML VIAL. ONE (07:13)
--- NOTE | 2019-12-15 07:19 | PDOC1 ---
History and Physical Date of Admission Date of Admission DATE: 12/15/19 TIME: 07:17 Identification/Chief Complaint Chief Complaint right knee pain Source Source: Chart review, Patient History of Present Illness History of Present Illness This 59-year-old has osteoarthritis right knee pain, unrelieved with nonoperative treatment. She previously had a left total knee arthroplasty with which she is pleased. In the past for knee arthritis she has tried cortisone injections, physical therapy, lubricating injections, NSAIDs ice and heat. Despite those treatments she has pain with activities of daily living. The pain limits her ability to walk for exercise. She and I have discussed the risks benefits and alternatives of total knee arthroplasty. 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 Past Medical History Past Medical History Acid reflux, History of breast cancer GI: GERD Psych: Depression Past Surgical History Past Surgical History: Appendectomy, Cholecystectomy, Total knee replacement, Tonsillectomy, Hysterectomy Family History Family History Mother: alive, diagnosed with Heart Disease. Father: , Heart Disease. Sister: alive, breast cancer. Maternal aunt: breast cancer. Paternal aunt: breast cancer. Paternal Grand Mother: Mental Illness. Maternal Uncle: Diabetes. 3 sister(s) . 1 son(s) , 1 daughter(s) - healthy Family History: Cancer, Heart Disease Social History Smoke: Quit ALCOHOL: rare Current Medications Current Medications Current Medications Morphine Sulfate 5 mg/Ketorolac Tromethamine 30 mg/Ropivacaine 60 ml/Epinephrine HCl 0.5 mg/Sodium Chloride 100 ml @ 100 mls/hr 1X ONCE INT ART ; Start 12/15/19 at 06:00; Stop 12/15/19 at 06:59; Status DC Ondansetron HCl (Zofran) 4 mg PRN Q6HRS PRN IV NAUSEA/VOMITING; Start 12/15/19 at 07:00; Stop 12/16/19 at 06:59 Fentanyl Citrate (Fentanyl 2ml Vial) 25 mcg PRN Q5MIN PRN IV MILD PAIN 1-3; Start 12/15/19 at 07:00; Stop 12/16/19 at 06:59 Fentanyl Citrate (Fentanyl 2ml Vial) 50 mcg PRN Q5MIN PRN IV MODERATE TO SEVERE PAIN; Start 12/15/19 at 07:00; Stop 12/16/19 at 06:59 Morphine Sulfate (Morphine Sulfate) 1 mg PRN Q10MIN PRN IV SEVERE PAIN 7-10; Start 12/15/19 at 07:00; Stop 12/16/19 at 06:59 Ringer's Solution 1,000 ml @ 30 mls/hr Q24H IV Last administered on 12/15/19at 06:26; Start 12/15/19 at 07:00; Stop 12/15/19 at 18:59 Hydromorphone HCl (Dilaudid) 0.5 mg PRN Q10MIN PRN IV SEV PAIN, Second choice; Start 12/15/19 at 07:00; Stop 12/16/19 at 06:59 Prochlorperazine Edisylate (Compazine) 5 mg PACU PRN PRN IV NAUSEA, MRX1; Start 12/15/19 at 07:00; Stop 12/16/19 at 06:59 Acetaminophen (Tylenol) 1,000 mg 1X PREOP PRN PO PRIOR TO PROCEDURE Last administered on 12/15/19at 06:33; Start 12/15/19 at 06:00; Stop 12/15/19 at 18:00 Cefazolin Sodium/ Dextrose 50 ml @ 100 mls/hr 1X PREOP PRN IV PRIOR TO PROCEDURE; Start 12/15/19 at 06:00; Stop 12/15/19 at 18:00 Tranexamic Acid 1000 mg/Sodium Chloride 60 ml @ 60 mls/hr 1X PERIOP ONCE INJ ; Start 12/15/19 at 06:00; Stop 12/15/19 at 06:59; Status DC Tranexamic Acid 1000 mg/Sodium Chloride 60 ml @ 60 mls/hr 1X PERIOP ONCE INJ ; Start 12/15/19 at 08:00; Stop 12/15/19 at 08:59 Celecoxib (CeleBREX) 400 mg 1X PREOP PRN PO PREOP Last administered on 12/15/19at 06:33; Start 12/15/19 at 06:00 Vancomycin HCl (Vancomycin) 1 gm STK-MED ONCE .ROUTE ; Start 12/15/19 at 06:09; Stop 12/15/19 at 06:09; Status DC Tobramycin Sulfate (Tobramycin Powder) 1.2 gm STK-MED ONCE .ROUTE ; Start 12/15/19 at 06:09; Stop 12/15/19 at 06:09; Status DC Fentanyl Citrate (Fentanyl 2ml Vial) 100 mcg STK-MED ONCE .ROUTE ; Start 12/15/19 at 07:06; Stop 12/15/19 at 07:06; Status DC Midazolam HCl (Versed) 2 mg STK-MED ONCE .ROUTE ; Start 12/15/19 at 07:13; Stop 12/15/19 at 07:13; Status DC Active Scripts Active Thera-M Tablet (Multivits,Ca,Minerals/Iron/Fa) 1 Each Tablet 1 Tab PO DAILY 90 Days Take 1 multivitamin daily Aspirin Ec (Aspirin) 325 Mg Tablet.dr 325 Mg PO BID 30 Days Take 1 enteric-coated aspirin by mouth twice a day for 30 days after surgery. Hydrocodone-Apap 7.5-325 (Hydrocodone Bit/Acetaminophen) 1 Tab Tablet 1-2 Tab PO PRN Q4HRS PRN 14 Days 1-2 tablets by mouth every 4 hours as needed for pain. Maximum of 4,000 mgs of acetaminophen (Tylenol) per day from all sources. Reported D3 + K2 Dots 1,000 Units Tab (Vitamin D3/Vitamin K2) 1 Each Tab.rapdis 2 Tab PO DAILY 30 Days Senna Plus Tablet (Sennosides/Docusate Sodium) 1 Each Tablet 1 Tab PO DAILY 20 Days Fannie-D 12 Hour Tablet (Fexofenadine/Pseudoephedrine) 1 Each Tab.er.12h 1 Tab PO DAILY 10 Days Vitamin C (Ascorbic Acid) 500 Mg Capsule.er 1 Cap PO DAILY 30 Days Ambien (Zolpidem Tartrate) 10 Mg Tablet 10 Mg PO PRN QHS PRN Pepcid (Famotidine) 20 Mg Tablet 20 Mg PO BID Allergies Allergies: Coded Allergies: pineapple (Verified Allergy, Intermediate, FRESH PINEAPPLE - RASH/HIVES, 08/11/19) Sulfa (Sulfonamide Antibiotics) (Verified Adverse Reaction, Intermediate, Rash, 08/11/19) tramadol (Verified Adverse Reaction, Intermediate, really weird feeling ( weak,wobbly), 08/11/19) ROS Review of System Classic ROS: Constitutional fevers Denies . CARDIOLOGY: Leg edema none. RESPIRATORY: Shortness of breath denies. GASTROENTEROLOGY: Weight gain denies. MUSCULOSKELETAL: New arthralgias Right knee. New Myalgias none. Muscle weakness denies. DERMATOLOGY: Rash denies. NEUROLOGY: Paresthesia/numbness denies. ENDOCRINOLOGY: Poor wound healing no. HEMATOLOGY/LYMPH: Abnormal bruising denies. ALLERGY: Anaphylaxis denies. Physical Exam General: Alert, Cooperative HEENT: Atraumatic Lungs: Normal air movement Heart: RRR Abdomen: Soft Extremities: Other (The RIGHT knee shows a mildly antalgic gait. There is varus alignment. No masses. No detectable effusion. Tenderness on the joint lines. Range of motion is 5-115 degrees. There is crepitus with range of motion, and pain at the extremes of motion. The knee is stable to varus and valgus stress without subluxation or laxity. Muscle strength is slightly weak for the quadriceps 4+/5 which may be due to pain or avoidance, and does not seem neurogenic, and the muscle tone and bulk is slightly decreased. The hamstring strength is 5/5. The skin is normal with no scars, rashes, lesions or ulcers. Light touch sensation is intact. No edema and no varicosities. Dorsalis pedis pulse is intact and capillary refill is normal) Skin: No breakdown, No significant lesion Neuro: Normal speech, Normal tone Psych/Mental Status: Mental status NL, Mood NL Vitals Vitals Vital Signs Date Time Temp Pulse Resp B/P (MAP) Pulse Ox O2 Delivery O2 Flow Rate FiO2 12/15/19 06:18 97.1 62 20 98 97.1 12/15/19 06:14 129/63 Room Air Images Images [facility] [address] [place] [address] IMAGING REPORT Signed PATIENT: NIA POTTER ACCOUNT: [id number] : 1960 LOCATION: [facility] AGE: 58 SEX: F EXAM STATUS: REG CLI ORD. PHYSICIAN: VIDYA DICKERSON MD REASON: PROCEDURE: KNEE RIGHT 3V EXAM: Bilateral knees, standing view; right knee, 2 views. HISTORY: Pain. COMPARISON: 10/09/2018 FINDINGS: A standing view both knees and lateral and sunrise views of the right knee are obtained. There is left greater than right medial compartment joint space narrowing with subchondral sclerosis and spurring. There is also bilateral lateral compartment spurring. There is left genu varus. There is a trace right joint effusion. IMPRESSION: 1. Moderate to severe left and mild to moderate right medial compartment and mild bilateral lateral compartment osteoarthritis of both knees. 2. Mild left genu varus. 3. Trace right knee effusion. Electronically signed by: Tanna Briggs MD (07/06/2019 4:39 PM) [facility] DICTATED and SIGNED BY: TANNA BRIGGS MD DATE: 07/06/19 1633 VTE Prophylaxis Ordered VTE Prophylaxis Devices: Yes VTE Pharmacological Prophylaxi: Yes Assessment/Plan Assessment/Plan right total knee arthroplasty is recommended for her knee osteoarthritis We discussed the potential risks of infection, neurovascular injury, fracture, bleeding, blood clots, malalignment, need for revision surgery, or other potential surgical or anesthetic complications. I recommended the robotic NAVIO instrumentation and we discussed my reasoning. We also discussed postoperative treatment and expectations including dental antibiotic prophylaxis and residual numbness over the knee. All of her questions were answered and she desires to proceed with total knee replacement. Justicifation of Admission Dx: Justifications for Admission: Justification of Admission Dx: Comment: (observation at this time. May require upgrade to admission.) Comments: major surgery today ARTURO PADILLA MD Dec 15, 2019 07:19
[2019-12-15] MEDS ORDERED: TRANEXAMIC ACID 1,000 MG in IV NS 50ML -- 2ND BAG INJ ONE (08:00)
[2019-12-15] MEDS ORDERED: DEXAMETHASONE SOD PHOS 4 MG/ML VIAL ONE (08:22)
[2019-12-15] MEDS ORDERED: PROPOFOL 10 MG/ML (20ML) VIAL. IV ONE (08:22)
[2019-12-15] MEDS ORDERED: SEVOFLURANE > 120 MINUTES. IH ONE (08:22)
[2019-12-15] MEDS ORDERED: LIDOCAINE 2% PF 5 ML VIAL. ONE (08:22)
[2019-12-15] MEDS ORDERED: ESMOLOL 100 MG/10 ML VIAL. IVP ONE (08:23)
[2019-12-15] MEDS ORDERED: ONDANSETRON PF 4 MG/2 ML VIAL. ONE (08:23)
[2019-12-15] MEDS ORDERED: ePHEDrine PF IN SALINE 50 MG/10 ML SYRINGE. IV ONE (09:20)
[2019-12-15] MEDS ORDERED: IV NORMAL SALINE 1000ML BAG 1,000 ML IV SCH (09:57)
--- NOTE | 2019-12-15 09:57 | PDOC4 ---
Operative Note Operative Note Date of Procedure: December 15, 2019 Pre-Op Diagnosis: Unilateral primary osteoarthritis, right knee. M17.11 Post-Op Diagnosis: same Procedure: right total knee arthroplasty with patella resurfacing, robotic assisted, CPT 33709 Surgeon: Arturo Gomez MD Slice Cutting Machine Operator: KLAUS Sierra Anesthesia: General EBL: 100 mL Specimens Obtained: right knee bone and soft tissue Complications: none Drains: Hemovac plus pain catheter Tourniquet time: 80 Minutes Tourniquet Pressure: 300 mm Hg Indications for Procedure: Knee arthritis pain, affecting quality of life, unrelieved by nonoperative management Findings: Severe osteoarthritis with bone on bone contact medially with full thickness cartilage loss in the patellofemoral and lateral compartments Implants: Mejia [employer] Nephew Journey II Total Knee System, Size 5 right bicruciate stabilized Journey II BCS Oxinium femoral component, size 4 right Journey nonporous tibial baseplate, size 3-4 10 mm right Journey II BCS XLPE articular insert, 35 mm oval Ignacia II resurfacing patellar component Procedure in Detail: The patient was identified in the preoperative holding area, and the correct right lower extremity was marked by me. The patient was taken to the operating room where the patient was anesthetized by the Department of Anesthesia. Preoperative antibiotics were given intravenously. Tranexamic acid 1 g was given intravenously for intraoperative hemostasis. A "time-out" procedure was performed. The patient was positioned supine on the operative table with a tourniquet on the upper right thigh. A right hip bump and heel bump were attached to the operating table for later intraoperative positioning. The right lower limb was thoroughly scrubbed, then sterile Chloraprep solution was applied, and the limb was draped in sterile fashion. The operating team wore exhaust ventilated hoods. An impervious stockinet and an adhesive drape were used such that the skin was entirely covered. The limb was exsanguinated with an Esmarch bandage, and the tourniquet was inflated. A midline skin incision was made with a scalpel using the patella and tibial tubercle as landmarks. Electrocautery was used for hemostasis. My emergency veterinary assistant used rake retractors and a laparotomy sponge. A medial parapatellar arthrotomy incision was used with extension into the distal quadriceps tendon. The patella was retracted laterally and Hohmann retractors were now used by my emergency veterinary assistant. Excess synovium, the menisci, and the cruciate ligaments were resected sharply. A periarticular multimodal ropivacaine anesthetic injection was used in the suprapatellar pouch and distal quadriceps muscle. The patella was everted and exposed. The patella thickness was measured with a caliper, and then cut freehand with a saw, using caliper measurements to assess the resection. The lateral retinaculum was partially released from the lateral patella using electrocautery. Rongeurs were used to make sure there were no remaining exposed patellar osteophytes medially or laterally. The patella was sized, and then drilled for an oval three-peg patella component. The tibial tracker array for the NAVIO system was applied to the tibial crest four finger breadths below the tibial tubercle, using percutaneous incisions and bicortical pins. The femoral tracker array was applied outside of the original incision using two separate stab incisions using bicortical pins. Checkpoint verification pins were applied to the femur and tibia. Using the point probe, the medial and lateral malleoli were localized and the locations were stored. The center of the tibia was noted at the anterior cruciate ligament insertion and stored. The center of the femur was marked at the intersection of Whitesidess line with the transepicondylar axis. The hip center calculation was performed with range of motion of the hip. The femur neutral position was identified, and simulated weightbearing was performed with axial compression on the foot. Range of motion without stress was performed and the data collected. Range of motion with valgus stress, and range of motion with varus stress data collection was also performed. Rotational references include the Whitesidess line, and the trans-epicondylar axis. The femoral articular surface was now mapped in 3 dimensions using the point probe and digital data collected. The tibial condyle articular surfaces and cortical edges were mapped in 3 dimensions using the point probe including the medial and lateral tibial plateau. Implant planning was now performed on-screen with manipulation of the implant sizes, cut thicknesses and gaps, component rotation, component flexion/extension and component varus/valgus until satisfactory ligament balance, alignment and stability of the knee was expected throughout the range of motion. My emergency veterinary assistant held Hohmann retractors and an [facility] retractor to protect the medial and lateral collateral ligaments, the patellar tendon, the skin and the other soft tissues. The point probe was used to confirm the location of the checkpoint verification pins. The distal femoral surface was now prepared using the Anspach mark with footpedal, and the NAVIO handpiece for bone removal to the previously planned distal femoral resection. The crosshairs at the pin locations were marked by using a mallet and the point probe for definitive location. A 5-in-1 Journey II cutting guide was then applied and the position was checked with the virtual abdullahi wing from the NAVIO to ensure proper placement as the pins were applied. The posterior, anterior, and all chamfer cuts were made with the oscillating saw. Excess bone was removed with an osteotome and rongeurs. The tibial cutting guide was applied, positioned using the NAVIO virtual abdullahi wing, and secured to the upper tibia using three pins at the previously planned location. The virtual abdullahi wing was used to confirm the resection depth, slope and coronal alignment. The upper tibia was cut made with an oscillating saw. My emergency veterinary assistant held Hohmann retractors and a posterior cruciate ligament retractor to protect the medial and lateral collateral ligaments, the patellar tendon, the skin, the peroneal nerve and the other soft tissues. The upper tibia was sized with a trial baseplate. The posterior compartment was cleared of osteophytes and loose bodies. The periarticular anesthetic injection was used in the posterior compartment. The box cut for a posterior stabilized component was made. A preliminary reduction was performed with a trial femur, trial tibial baseplate and trial polyethylene. The NAVIO system was used to confirm range of motion, and postoperative stressed gap assessment. No additional releases were required. The stability was assessed using different thicknesses of tibial articular surface to find satisfactory stability and good range of motion. The rotation of the tibial component was marked on the upper tibia. Final trial reduction was now performed verifying patella tracking and tibiofemoral stability and alignment. The bone pins and tracker arrays were removed, and the checkpoint verification pins were removed. The tibia preparation was completed with a drill, saw, and fin punch at the previously noted rotation. The final implants were verified and opened. Outer gloves were changed by the operating team. Betadine lavage was used. The bone cuts were irrigated with saline using the [employer] InterPulse device and then dried with suction and laparotomy sponges. Two packages of Mejia + Nephew Rally HV bone cement were mixed in powdered form with Vancomycin 1gm and Tobramycin 1.2 gm, and then vacuum-mixed with the monomer, and placed into a cement gun. The cut surfaces of the bone were thoroughly dried with suction and with laparotomy sponges for cement interdigitation. The final components were cemented into place. The knee was kept at full extension while the cement hardened, and excess cement was removed. A Betadine lavage was used throughout the surgical exposure, and allowed to sit in contact with the exposed joint surfaces for three minutes while the cement hardened. Tranexamic acid 1 g was redosed intravenously for additional intraoperative hemostasis. The tourniquet was released, and electrocautery was used for hemostasis. A final periarticular anesthetic injection was used for pain relief. The bone pin sites on the tibial crest were closed with #3-0 Nylon sutures. A final check of [id number] and stability was made, and the polyethylene implant final size was chosen. The polyethylene implant was secured to the tibial baseplate, and the knee was reduced a final time and range of motion and stability was confirmed. Thorough irrigation was used. A pain catheter, and a 15 Fr Hemovac were inserted. Topical Vancomycin 1 gm was used during the closure. The arthrotomy was closed with interrupted [id number] #1 Vicryl suture in figure of eight fashion, with closely spaced sutures for watertight closure. The subcutaneous tissues were approximated initially with 2-0 Vicryl inverted interrupted sutures by my emergency veterinary assistant. Next the subcuticular layer was approximated in a running fashion with #3-0 STRATAFIX suture by my emergency veterinary assistant. The skin incision was then covered and reinforced by my emergency veterinary assistant with Acticoat, followed by a HAYLIE single use negative pressure wound therapy dressing Soft roll and an Robbin wrap were applied. Needle and sponge counts were correct. There were no apparent complications. The patient returned to the recovery room in stable condition. ARTURO GOMEZ MD Dec 15, 2019 09:57
[2019-12-15] MEDS ORDERED: fentaNYL PF VIAL 100 MCG/2 ML VIAL IVP PRN ×2 (10:00)
[2019-12-15] MEDS ORDERED: 0.9 % SODIUM CHLORIDE 10 ML DISP.SYRIN. IV PRN (10:00)
[2019-12-15] MEDS ORDERED: oxyCODONE/APAP 5/325 1 TAB TABLET PO PRN ×2 (10:00→12:30)
[2019-12-15] MEDS ORDERED: diphenhydrAMINE 50 MG/ML VIAL IVP PRN (10:00)
[2019-12-15] MEDS ORDERED: CALCIUM CARBONATE 500 MG TAB.CHEW PO PRN (10:00)
[2019-12-15] MEDS ORDERED: ZOLPIDEM 5 MG TABLET. PO PRN (10:00)
[2019-12-15] MEDS ORDERED: PROCHLORPERAZINE 5 MG TABLET. PO PRN (10:00)
[2019-12-15] MEDS ORDERED: METOCLOPRAMIDE HCL 10 MG/2 ML VIAL. IVP PRN (10:00)
[2019-12-15] MEDS ORDERED: MORPHINE SULFATE 2 MG/ML VIAL. IVP PRN (10:00)
[2019-12-15] MEDS ORDERED: DEXTROSE 50% 25 GM / 50ML DISP.SYRIN. IV PRN (10:00)
[2019-12-15] MEDS ORDERED: MORPHINE SULFATE 4 MG/ML VIAL. IVP PRN (10:00)
--- NOTE | 2019-12-15 10:21 | RAD ---
KNEE RIGHT 2V History: Reason: POST OP / Spl. Instructions: / History: Technique: 2 views right knee. Comparison: August 24, 2019 Findings: Interval right total knee arthroplasty. Expected postoperative changes subcutaneous and intra-articular gas. Surgical drain noted. Normal alignment. No fracture. Impression: 1. Interval right total knee arthroplasty. No immediate hardware complications. Electronically signed by: Dameon Ewing DO (12/15/2019 10:18 AM) ISAIAH
[2019-12-15] MEDS: fentaNYL PF VIAL 100 MCG/2 ML VIAL IV PRN ×2 (10:42→10:49)
[2019-12-15] MEDS ORDERED: MORPHINE SULFATE 2 MG/ML VIAL. ONE (11:04)
[2019-12-15] MEDS: MORPHINE SULFATE 2 MG/ML VIAL. IV PRN ×2 (11:08→11:22)
[2019-12-15] MEDS: ONDANSETRON ODT 4 MG TAB.RAPDIS. PO SCH ×2 (12:00→17:13)
[2019-12-15] MEDS: SENNOSIDES/DOCUSATE 8.6/50MG TABLET. PO SCH (12:00)
[2019-12-15] MEDS: ONDANSETRON PF 4 MG/2 ML VIAL. IVP SCH ×2 (12:00→17:13)
--- NOTE | 2019-12-15 12:48 | NUR ---
Received from pacu; She is alert and oriented x4. She is rating her pain-"4". She states that she is comfortable. She has good motion, sensation and pulses bilateral lower extremities. Denies nausea. Started on clear liquids. Up to the bathroom with gait belt, walker;voided 650 cc clear yellow urine
[2019-12-15] MEDS: HYDROcodone/APAP 7.5/325MG 1 TAB TABLET PO PRN ×3 (13:18→21:14)
[2019-12-15] MEDS: KETOROLAC 30MG VIAL 30 MG, BUPIVACAINE MPF 0.25% 20 ML, EPINEPHrine 0.5 MG in TOTAL VOL... INT ART SCH (17:12)
[2019-12-15] MEDS: FERROUS SULFATE 325 MG TABLET. PO SCH (17:12)
[2019-12-15] MEDS: FAMOTIDINE 20 MG TABLET. PO SCH (21:00)
[2019-12-15] MEDS: ASPIRIN ENTERIC COATED 325 MG TABLET.DR. PO SCH (21:13)
[2019-12-15] MEDS: ZOLPIDEM 5 MG TABLET. PO PRN (21:13)
[2019-12-16] MEDS: HYDROcodone/APAP 7.5/325MG 1 TAB TABLET PO PRN ×5 (02:59→20:32)
[2019-12-16 03:26] VITALS: BP 122/61
[2019-12-16 04:50] LABS: HEMATOCRIT 32.4 % (36.0-47.0); HEMOGLOBIN 11.1 g/dL (12.0-15.5); RED BLOOD COUNT 3.39 x10^6/uL (3.50-5.40); RED CELL DISTRIBUTION WIDTH 12.9 % (11.5-14.5); WHITE BLOOD COUNT 13.1 x10^3/uL (4.0-11.0)
[2019-12-16] MEDS: ONDANSETRON PF 4 MG/2 ML VIAL. IVP SCH ×2 (05:34)
[2019-12-16] MEDS: ONDANSETRON ODT 4 MG TAB.RAPDIS. PO SCH ×2 (05:35)
[2019-12-16] MEDS ORDERED: MAGNESIUM HYDROXIDE 2,400 MG/30 ML ORAL.SUSP. PO PRN (06:00)
[2019-12-16] MEDS: KETOROLAC 30MG VIAL 30 MG, BUPIVACAINE MPF 0.25% 20 ML, EPINEPHrine 0.5 MG in TOTAL VOL... INT ART SCH (06:06)
[2019-12-16 06:28] VITALS: BP 118/67
[2019-12-16] MEDS: CETIRIZINE HCL 10 MG TABLET. PO SCH (08:23)
[2019-12-16] MEDS: PSEUDOEPHEDRINE ER 120 MG TABLET.ER. PO SCH (08:23)
[2019-12-16] MEDS: MULTIVITAMIN with MINERAL TABLET. PO SCH (08:25)
[2019-12-16] MEDS: MELOXICAM 7.5 MG TABLET PO SCH (08:25)
[2019-12-16] MEDS: FERROUS SULFATE 325 MG TABLET. PO SCH ×2 (08:25→16:29)
[2019-12-16] MEDS: ASPIRIN ENTERIC COATED 325 MG TABLET.DR. PO SCH ×2 (08:25→20:32)
[2019-12-16] MEDS: SENNOSIDES/DOCUSATE 8.6/50MG TABLET. PO SCH (08:25)
[2019-12-16] MEDS: ASCORBIC ACID 500 MG TABLET PO SCH (08:26)
[2019-12-16] MEDS: FAMOTIDINE 20 MG TABLET. PO SCH ×2 (08:31→20:36)
--- NOTE | 2019-12-16 09:00 | NUR ---
Tearful and painful this am. Pt states "I don't like to be so dependent on others". AM meds given and discussed POC for today. Verbalized understanding. Cont. monitor.
[2019-12-16] MEDS ORDERED: ONDANSETRON PF 4 MG/2 ML VIAL. IVP PRN (12:00)
[2019-12-16] MEDS ORDERED: ONDANSETRON ODT 4 MG TAB.RAPDIS. PO PRN (12:00)
[2019-12-16] MEDS: CHOLECALCIFEROL (VITAMIN D3) 1,000 UNIT TABLET PO SCH (12:06)
--- NOTE | 2019-12-16 14:07 | PDOC ---
PROGRESS NOTES Subjective Subjective Had quite a bit of pain. Doing a little better now. Objective Vital Signs Vital Signs Date Time Temp Pulse Resp B/P (MAP) Pulse Ox O2 Delivery O2 Flow Rate FiO2 12/16/19 13:09 Room Air 12/16/19 06:28 98.4 76 16 118/67 (84) 96 98.4 12/15/19 15:01 2.0 Physical Exam Dressing dry. Calf soft. Still has hemovac. Labs Laboratory Tests Test 12/16/19 04:35 White Blood Count 13.1 x10^3/uL (4.0-11.0) Red Blood Count 3.39 x10^6/uL (3.50-5.40) Hemoglobin 11.1 g/dL (12.0-15.5) Hematocrit 32.4 % (36.0-47.0) Mean Corpuscular Volume 96 fL (79-100) Mean Corpuscular Hemoglobin 33 pg (25-35) Mean Corpuscular Hemoglobin Concent 34 g/dL (31-37) Red Cell Distribution Width 12.9 % (11.5-14.5) Platelet Count 228 x10^3/uL (140-400) Laboratory Tests Test 12/16/19 04:35 White Blood Count 13.1 x10^3/uL (4.0-11.0) Red Blood Count 3.39 x10^6/uL (3.50-5.40) Hemoglobin 11.1 g/dL (12.0-15.5) Hematocrit 32.4 % (36.0-47.0) Mean Corpuscular Volume 96 fL (79-100) Mean Corpuscular Hemoglobin 33 pg (25-35) Mean Corpuscular Hemoglobin Concent 34 g/dL (31-37) Red Cell Distribution Width 12.9 % (11.5-14.5) Platelet Count 228 x10^3/uL (140-400) Imaging Report reviewed, images independently reviewed. Satisfactory TKA. [facility] [address] [place] [address] IMAGING REPORT Signed PATIENT: NIA POTTER ACCOUNT: [id number] : 1960 LOCATION: SURG AGE: 59 SEX: F EXAM STATUS: REG [facility] ORD. PHYSICIAN: ARTURO PADILLA MD REASON: POST OP PROCEDURE: KNEE RIGHT 2V KNEE RIGHT 2V History: Reason: POST OP / Spl. Instructions: / History: Technique: 2 views right knee. Comparison: August 24, 2019 Findings: Interval right total knee arthroplasty. Expected postoperative changes subcutaneous and intra-articular gas. Surgical drain noted. Normal alignment. No fracture. Impression: 1. Interval right total knee arthroplasty. No immediate hardware complications. Electronically signed by: Elicia Ewing DO (12/15/2019 10:18 AM) [facility] DICTATED and SIGNED BY: ELICIA EWING DO DATE: 12/15/19 1018 Assessment Assessment POD# 1 after TKA. Still with drain in place and may require IV pain meds. Plan Plan of Care Hold discharge until at least tomorrow due to drainage and pain. Justicifation of Admission Dx: Justifications for Admission: Justification of Admission Dx: Comment: (observation at this time. May require upgrade to admission.) ARTURO PADILLA MD Dec 16, 2019 14:07
--- NOTE | 2019-12-16 14:41 | NUR ---
Hemovac & IAC discontinued per order, foam dressing applied to both areas, tolerated procedure well, DUGLAS hose applied to surgical side, ice pack applied for comfort, call light in reach
[2019-12-16] MEDS ORDERED: BISACODYL 10 MG SUPP.RECT. PR PRN (16:00)
[2019-12-16 18:06] VITALS: BP 98/55
[2019-12-16] MEDS: ZOLPIDEM 5 MG TABLET. PO PRN ×2 (20:32→21:53)
[2019-12-17] MEDS: HYDROcodone/APAP 7.5/325MG 1 TAB TABLET PO PRN ×7 (00:48→21:11)
[2019-12-17 04:34] LABS: HEMATOCRIT 34.1 % (36.0-47.0); HEMOGLOBIN 11.6 g/dL (12.0-15.5)
[2019-12-17 06:06] VITALS: BP 134/71
[2019-12-17] MEDS: ASCORBIC ACID 500 MG TABLET PO SCH (08:23)
[2019-12-17] MEDS: PSEUDOEPHEDRINE ER 120 MG TABLET.ER. PO SCH (08:23)
[2019-12-17] MEDS: FERROUS SULFATE 325 MG TABLET. PO SCH ×2 (08:23→17:07)
[2019-12-17] MEDS: CETIRIZINE HCL 10 MG TABLET. PO SCH (08:23)
[2019-12-17] MEDS: MELOXICAM 7.5 MG TABLET PO SCH (08:23)
[2019-12-17] MEDS: MULTIVITAMIN with MINERAL TABLET. PO SCH (08:23)
[2019-12-17] MEDS: ASPIRIN ENTERIC COATED 325 MG TABLET.DR. PO SCH ×2 (08:23→21:08)
[2019-12-17] MEDS: SENNOSIDES/DOCUSATE 8.6/50MG TABLET. PO SCH (08:24)
--- NOTE | 2019-12-17 09:15 | NUR ---
Tearful this morning due to pain on right knee. Wanting to return back to bed. Been up since 6 am this morning Lortab po given and elevated right leg on pillow. Pt wanting to rest before therapy.
--- NOTE | 2019-12-17 12:42 | PDOC ---
PROGRESS NOTES Subjective Subjective Mentioned that she got shots after her last TKA which helped the pain more than this surgery with the pain catheter. Objective Vital Signs Vital Signs Date Time Temp Pulse Resp B/P (MAP) Pulse Ox O2 Delivery O2 Flow Rate FiO2 12/17/19 08:24 Room Air 12/17/19 06:06 98.0 24 16 134/71 (92) 97 98.0 12/15/19 15:01 2.0 Physical Exam Bloody drainage on HAYLIE. Calft soft and NT. Toes NVI. Appears uncomfortable but no SOB or CP Labs Laboratory Tests Test 12/16/19 04:35 12/17/19 04:10 White Blood Count 13.1 x10^3/uL (4.0-11.0) Red Blood Count 3.39 x10^6/uL (3.50-5.40) Hemoglobin 11.1 g/dL (12.0-15.5) 11.6 g/dL (12.0-15.5) Hematocrit 32.4 % (36.0-47.0) 34.1 % (36.0-47.0) Mean Corpuscular Volume 96 fL (79-100) Mean Corpuscular Hemoglobin 33 pg (25-35) Mean Corpuscular Hemoglobin Concent 34 g/dL (31-37) 34 g/dL (31-37) Red Cell Distribution Width 12.9 % (11.5-14.5) Platelet Count 228 x10^3/uL (140-400) Laboratory Tests Test 12/17/19 04:10 Hemoglobin 11.6 g/dL (12.0-15.5) Hematocrit 34.1 % (36.0-47.0) Mean Corpuscular Hemoglobin Concent 34 g/dL (31-37) Assessment Assessment POD#2 after TKA, still having moderate pain Plan Plan of Care Rx fentanyl today. Home tomorrow. Justicifation of Admission Dx: Justifications for Admission: Justification of Admission Dx: Comment: (observation at this time. May require upgrade to admission.) Comments: pain requiring IV pain ARTURO Tobin MD Dec 17, 2019 12:42
--- NOTE | 2019-12-17 12:45 | NUR ---
Pt still having a lot pain. Rates pain at "8" on pain scale. Fentanyl IV given with hydrocodone. Encourage to use ice pack and to keep leg elevated while at rest. Cont. monitor.
[2019-12-17] MEDS: CHOLECALCIFEROL (VITAMIN D3) 1,000 UNIT TABLET PO SCH (12:47)
[2019-12-17] MEDS: FAMOTIDINE 20 MG TABLET. PO SCH ×2 (12:48→21:07)
--- NOTE | 2019-12-17 17:40 | NUR ---
Feeling better. Rating pain at "5" the lowest its been today. Keeping right leg iced and elevated. Cont. monitor.
[2019-12-17 18:22] VITALS: BP 138/62
[2019-12-18] MEDS: HYDROcodone/APAP 7.5/325MG 1 TAB TABLET PO PRN ×3 (01:03→15:29)
[2019-12-18 04:36] LABS: HEMATOCRIT 33.1 % (36.0-47.0); HEMOGLOBIN 11.4 g/dL (12.0-15.5)
[2019-12-18 06:35] VITALS: BP 115/60
[2019-12-18] MEDS: CETIRIZINE HCL 10 MG TABLET. PO SCH (07:56)
[2019-12-18] MEDS: PSEUDOEPHEDRINE ER 120 MG TABLET.ER. PO SCH (07:57)
[2019-12-18] MEDS: FERROUS SULFATE 325 MG TABLET. PO SCH (07:57)
[2019-12-18] MEDS: FAMOTIDINE 20 MG TABLET. PO SCH (07:57)
[2019-12-18] MEDS: CHOLECALCIFEROL (VITAMIN D3) 1,000 UNIT TABLET PO SCH (07:57)
[2019-12-18] MEDS: SENNOSIDES/DOCUSATE 8.6/50MG TABLET. PO SCH (07:57)
[2019-12-18] MEDS: ASCORBIC ACID 500 MG TABLET PO SCH (07:58)
[2019-12-18] MEDS: ASPIRIN ENTERIC COATED 325 MG TABLET.DR. PO SCH (07:58)
[2019-12-18] MEDS: MULTIVITAMIN with MINERAL TABLET. PO SCH (07:58)
[2019-12-18] MEDS: MELOXICAM 7.5 MG TABLET PO SCH (07:58)
--- NOTE | 2019-12-18 09:07 | PATHOLOGY ---
[facility] Accession Number: [id number] . 01 Material submitted: . knee - RIGHT KNEE BONE AND TISSUE. Modifiers: right . 01 Clinical history: . Right knee pain . 02 Diagnosis: Segments of bone and soft tissue, robotic assisted right total knee arthroplasty: - Advanced degenerative arthritis. - Mild nonspecific papillary chronic synovitis. (JPM:pit 12/17/2019) QTP 12/17/2019 1616 Local . 02 Electronically signed: . Jaren Rushing MD, Pathologist NPI- [id number] . 01 Gross description: . The specimen is received in formalin, labeled "Tarsha Austin, right knee bone and tissue" and consists of multiple segments of bone including the tibial plateau measuring 13.0 x 12.0 x 2.4 cm in aggregate. The meniscus is present and there is attached yellow soft tissue. The articular surfaces are nieves and granular with focal eburnation. [employer] sections are submitted in A1-A2 with A2 following decalcification. (SDY; 12/16/2019) SYU/SYU 12/16/2019 1152 Local . 02 Pathologist provided ICD-10: M17.11, M65.9 . 02 CPT . 604976, 351056 Specimen Comment: A courtesy copy of this report has been sent to [phone], [phone] Specimen Comment: [phone] Specimen Comment: Report sent to / DR CARO Performed at: 01 [facility] [address], [place] [id number] MD Dylan Malloy MD Phone: [phone] Performed at: 02 [facility] [id number] MD Jaren Rushing MD Phone: [phone]
--- NOTE | 2019-12-18 15:17 | PDOC ---
PROGRESS NOTES Subjective Subjective Doing well. Planning for discharge today. Objective Vital Signs Vital Signs Date Time Temp Pulse Resp B/P (MAP) Pulse Ox O2 Delivery O2 Flow Rate FiO2 12/18/19 12:32 96 Room Air 12/18/19 06:35 98.5 75 20 115/60 (78) 98.5 12/17/19 20:14 6.0 Physical Exam Spotty drainage on HAYLIE dressing. Calf soft and NT. NVI. Labs Laboratory Tests Test 12/17/19 04:10 12/18/19 04:08 Hemoglobin 11.6 g/dL (12.0-15.5) 11.4 g/dL (12.0-15.5) Hematocrit 34.1 % (36.0-47.0) 33.1 % (36.0-47.0) Mean Corpuscular Hemoglobin Concent 34 g/dL (31-37) 34 g/dL (31-37) Laboratory Tests Test 12/18/19 04:08 Hemoglobin 11.4 g/dL (12.0-15.5) Hematocrit 33.1 % (36.0-47.0) Mean Corpuscular Hemoglobin Concent 34 g/dL (31-37) Assessment Assessment POD #3 after TKA Plan Plan of Care Discharge to home today. Outpatient PT for TKA. Continue DVT prophylaxis with aspirin. Follow up in office. D/C HAYLIE on POD #7 if not removed in office sooner; replace HAYLIE with Aquacel. Justicifation of Admission Dx: Justifications for Admission: Justification of Admission Dx: Comment: (observation at this time. May require upgrade to admission.) ARTURO PADILLA MD Dec 18, 2019 15:17
--- NOTE | 2019-12-18 15:21 | PDOC3 ---
Discharge Summary Visit Information Date of Admission: Dec 15, 2019 Date of Discharge: Dec 18, 2019 Admitting Diagnosis: osteoarthritis right knee, aftercare after right TKA Final Diagnosis same Brief Hospital Course Allergies Allergies Coded Allergies Type Severity Reaction Last Updated Verified pineapple Allergy Intermediate FRESH PINEAPPLE - RASH/HIVES 08/11/19 Yes Sulfa (Sulfonamide Antibiotics) Adverse Reaction Intermediate Rash 08/11/19 Yes tramadol Adverse Reaction Intermediate really weird feeling ( weak,wobbly) 08/11/19 Yes Vital Signs Vital Signs Date Time Temp Pulse Resp B/P (MAP) Pulse Ox O2 Delivery O2 Flow Rate FiO2 12/18/19 12:32 96 Room Air 12/18/19 06:35 98.5 75 20 115/60 (78) 98.5 12/17/19 20:14 6.0 Lab Results Laboratory Tests Test 12/17/19 04:10 12/18/19 04:08 Hemoglobin 11.6 g/dL (12.0-15.5) 11.4 g/dL (12.0-15.5) Hematocrit 34.1 % (36.0-47.0) 33.1 % (36.0-47.0) Mean Corpuscular Hemoglobin Concent 34 g/dL (31-37) 34 g/dL (31-37) Laboratory Tests Test 12/18/19 04:08 Hemoglobin 11.4 g/dL (12.0-15.5) Hematocrit 33.1 % (36.0-47.0) Mean Corpuscular Hemoglobin Concent 34 g/dL (31-37) Brief Hospital Course 59 year old who presented with knee osteoarthritis, for elective total knee arthroplasty. The patient underwent total knee arthroplasty under general anesthesia the day of admission. Perioperative antibiotics and DVT prophylaxis were used. Postoperatively physical therapy and case management were consulted. The patient progressed and is stable for discharge. Discharge Information Condition at Discharge: Stable Follow Up: Weeks Disposition/Orders: D/C to Home Scheduled Ascorbic Acid (Vitamin C), 1 CAP PO DAILY, (Reported) Aspirin (Aspirin Ec), 325 MG PO BID Famotidine (Pepcid), 20 MG PO BID, (Reported) Fexofenadine/Pseudoephedrine (Fannie-D 12 Hour Tablet), 1 TAB PO DAILY, (Reported) Multivits,Ca,Minerals/Iron/Fa (Thera-M Tablet), 1 TAB PO DAILY Sennosides/Docusate Sodium (Senna Plus Tablet), 1 TAB PO DAILY, (Reported) Vitamin D3/Vitamin K2 (D3 + K2 Dots 1,000 Units Tab), 2 TAB PO DAILY, (Reported) Scheduled PRN Hydrocodone Bit/Acetaminophen (Hydrocodone-Apap 7.5-325 ), 1-2 TAB PO PRN Q4HRS PRN for PAIN Zolpidem Tartrate (Ambien), 10 MG PO PRN QHS PRN for INSOMNIA, (Reported) Patient Instructions Patient Instructions Continue to weight bearing as tolerated with walker. Keep HAYLIE dressing intact and dry. Follow up with Dr. Gomez's office in 7 days. Call for appointment unless already scheduled. Continue enteric coated aspirin 325 mg by mouth twice a day for 30 days to prevent blood clots. Justicifation of Admission Dx: Justifications for Admission: Justification of Admission Dx: Comment: (observation at this time. May require upgrade to admission.) ARTURO GOMEZ MD Dec 18, 2019 15:21
[2019-12-18 15:50] VITALS: BP 131/69
--- NOTE | 2019-12-18 16:47 | NUR ---
Patient left the building around 1435. Discharge education completed by this nurse, therapy, and the doctor prior to discharge. HAYLIE dressing changed per Dr Gomez prior to discharge. Script given for norco to patient and pain medication given prior to discharge since patient will be traveling to [place] with family tonight. No concerns noted at discharge.
== END 2019-12-18 16:40 | disposition home or self-care (01) | DRG 470 ==
LOC: SURG 05:38 → 4 SOUTHEST 09:57 → OBSVTOIN 12-16 14:08
PROVIDERS: ADMIT Orthopaedic Surgery; ATTEND Orthopaedic Surgery
PROC: 8E0Y0CZ Robotic Assisted Procedure of Lower Extremity, Open Approach (ICD-10-PCS; 2019-12-15)
PROC: 0SRC069 Replacement of Right Knee Joint with Oxidized Zirconium on Polyethylene Synthetic Substitute, Cemented, Open Approach (ICD-10-PCS; principal; 2019-12-15 07:10)
DX: M17.11 Unilateral primary osteoarthritis, right knee (principal); Z96.652 Presence of left artificial knee joint; K21.9 Gastro-esophageal reflux disease without esophagitis; F32.9 Major depressive disorder, single episode, unspecified; Z85.3 Personal history of malignant neoplasm of breast; Z90.710 Acquired absence of both cervix and uterus; Z80.3 Family history of malignant neoplasm of breast; Z83.3 Family history of diabetes mellitus; Z82.49 Family history of ischemic heart disease and other diseases of the circulatory system
CPT/HCPCS: 36415; 73560; 85014; 85018; 85027; 86850; 86900; 86901; A7015; C1713; G0378; G0379; J0171; J0696; J1100; J1885; J2250; J2270; J2405; J2704; J2795; J3010; J3260; J3370; J3490; J7030; J7120; 97110-GP; 97116-GP; 97150-GP; 97530-GO; 97530-GP; 97535-GO; A4461; C1769